=== PATIENT | female | born 1960 | race Caucasian/White ===

== ENCOUNTER 2021-06-16 12:01 | Observation (INO) | payer OTHER, SELFPAY ==
--- OUTSIDE RECORDS SUMMARY | 2021-06-16 12:05 | XMS REPORT | Continuity of Care Document ---
:1960 Author Organization [facility] t Address [address] [place] [address] Care Team Providers Name Role Phone CO19, NURSE-CALEB Attending Clinician Unavailable DESMOND RIOS M.D. Attending Clinician Unavailable NADEEN RAMOS, PHD Attending Clinician Unavailable KALIE ZULUAGA M.D. 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 [place] with ) with Physici memory memory ans loss loss Spells of Spells of Problem Active Uni vers decreased decreased [place] attentiven attentiven [place] [facility] 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 ity of [place] [facility] Encounter Encounter Problem Active Uni vers for for [place]y of administra administra [place] tion of tion of Physici COVID-19 COVID-19 ans vaccine vaccine History of History of Problem Resolve Univers Moe Moe d ity of thyroiditi thyroiditi [place] s [facility] ans History of History of Problem Resolve Univers varicella varicella d ity of [place] [facility] History of History of Problem Resolve Univers Roger Roger d ity of syndrome syndrome [place] [facility] History of History of Problem Resolve Univers right foot right foot d it y of drop drop [place] [facility] History of History of Problem Resolve Univers syncope syncope d ity of [place] [facility] Allergies, Adverse Reactions, Alerts Allergy Allergy Status Severity Reaction(s) Onset Inactive Treating Comm ents Source Name Type Date Date Clinician YEIMI DA Active U [facility] Inhibito 10-13 [place] rs 00:[facility]: Orthope [facility] Sulfa DA Active RI [facility] (Sulfona 10-13 [place] mide 00:00: Orthope Antibiot 00 dic ics) Hospita l YEIMI DA Active U [facility] Inhibito 11-16 [place] rs 00:00: Orthope 00 dic [facility]osp[facility] Sulfa DA Active U [facility] (Sulfona 11-16 [place] mide 00:00: Orthope Antibiot 00 dic ics) Hospita l YEIMI DA Active U [facility] INHIBITO 11-15 [place] RS 00:00: Orthope 00 dic Hospita l No Known DA Active U [facility] Contrast 11-15 [place] Allergie 00:00: Orthope s 00 dic Hospita l No Known DA Active U [facility] Food 11-15 [place] Allergie 00:00: Orthope s 00 dic Hospita l No Known DA Active U [facility] Other 11-15 [place] Allergie 00:00: Orthope s 00 dic Hospita l SULFA DA Active U 0 [facility] DRUGS 11-15 [place] 00:00: Orthope 00 dic Hospita l YEIMI Allergy Active Univers Inhibito to drug ity of rs (finding [place] ) Physici ans sulfa Allergy Active Univers to drug ity of (finding [place] Physici ans Family History Family Member Diagnosis Comments Start Date Stop Date Source Grandmother Family history of Univer sity of Alzheimer's disease [place] [facility] Grandmother Family history of Univer sity of Adult celiac disease [place] [facility] Grandfather Family history of Univer sity of Aneurysm [place] [facility] Grandfather Family history of Univer sity of atrial fibrillation [place] [facility] great grandmother Family history of University of atrial fibrillation [place] [facility] Mother Family history of Univers ity of atrial fibrillation [place] [facility] Mother Family history of Univers ity of hypothyroidism [place] [facility] Mother Family history of Univers ity of Degenerative disease [place] [facility] of nervous system, unspecified Mother Family history of Univers ity of Alive and well [place] [facility] Mother Family history of Univers ity of valvular heart [place] [facility] disease Father Family history of Univers ity of hypertension [place] [facility] Father Family history of Univers ity of High cholesterol [place] [facility] Father Family history of Univers ity of myocardial infarction [place] Father Family history of Univers ity of cardiomyopathy [place] [facility] Father Family history of Univers ity of [place] [facility] Medications Ordered Filled Start Stop Current Ordering Indication Dosage Frequency Signature Comments Components Source Medication Medication Date Date Medication? Clinician (SIG) Name Name L-Thyroxine L-Thyroxine Yes 1 QD TAKE 1 Univers Sodium 125 Sodium 125 TABLET i ty of MCG TABS MCG TABS DAILY. [place] [facility] valACYclovi valACYclovi Yes U nivers r HCl - 1 r HCl - 1 ity o f GM Oral GM Oral [place] Tablet Tablet Physici ans CombiPatch CombiPatch Yes Uni vers PTTW PTTW ity of [place] [facility] Ambien 10 Ambien 10 Yes Unive rs MG Oral MG Oral ity of Tablet Tablet [place] [facility] Wellbutrin Wellbutrin Yes Uni vers XL 300 MG XL 300 MG ity o f Oral Tablet Oral Tablet [place] Extended Extended Physici Release 24 Release 24 ans Hour Hour Lysine 1000 Lysine 1000 Yes U nivers MG TABS MG TABS ity of [place] [facility] B Complex B Complex Yes Unive rs CAPS CAPS ity of [place] [facility] Fish Oil Fish Oil Yes Univers CAPS CAPS ity of [place] [facility] Flaxseed Flaxseed Yes Univers Oil OIL Oil OIL ity of [place] [facility] ans Metamucil Metamucil Yes Unive rs PACK PACK ity of [place] [facility] Multiple Multiple Yes Univers Vitamins/Ir Vitamins/Ir i ty of on Oral on Oral [place] Tablet Tablet Physici ans Immunizations Ordered Immunization Filled Immunization Date Status Commen ts Source Name Name Pfizer-BioNTech 2020-10-04 Completed Universit y of COVID-19 Vacc 30 20:34:00 [place] [facility] MCG/0.3ML Intramuscular Suspension Pfizer-BioNTech 2020-09-14 Completed Universit y of COVID-19 Vacc 30 08:06:00 [place] [facility] MCG/0.3ML Intramuscular Suspension Vital Signs Vital Name Observation Time Observation Value Comments Source BP Systolic 2019-06-01 135 mm[Hg] Location: [facility] 14:48:00 Position: [place] [facility] s Sitting BP Diastolic 2019-06-01 88 mm[Hg] Location: [facility] 14:48:00 Position: [place] Physician s Sitting Height 2019-06-01 66 [in_us] [facility] 14:48:00 [place] [facility] Weight 2019-06-01 140 [lb_av] [facility] 14:48:00 [place] [facility] Body Mass Index 2019-06-01 22.6 kg/m2 University o f Calculated 14:48:00 [place] [facility] Temperature 2019-06-01 97.8 [degF] [facility] 14:48:00 [place] [facility] Heart Rate 2019-06-01 66 /min [facility] 14:48:00 [place] [facility] BP Systolic 2019-02-09 156 mm[Hg] [facility] 09:10:00 [place] [facility] BP Diastolic 2019-02-09 95 mm[Hg] [facility] 09:10:00 [place] [facility] Height 2019-02-09 66 [in_us] [facility] 09:10:00 [place] [facility] s Weight 2019-02-09 139 [lb_av] [facility] 09:10:00 [place] [facility] s Body Mass Index 2019-02-09 22.44 kg/m2 University o f Calculated 09:10:00 [place] [facility] Heart Rate 2019-02-09 69 /min [facility] 09:10:00 [place] [facility] Respiration Rate 2019-02-09 16 /min [facility] 09:10:00 [place] [facility] O2 SAT 2019-02-09 98 % [facility] 09:10:00 [place] [facility] Procedures Procedure Date / Time Performing Clinician Source Performed [Q] AUTOIMMUNE EPILEPSY 2019-06-01 00:00:00 [facility] EVALUATION Physicians [H] Paraneoplastic 2019-03-21 00:00:00 [facility] Autoantibody Evaluation Physicia ns [Q] Rikki Encephalitis 2019-03-21 00:00:00 [facility] Paraneoplastic Evaluation Physic ians with Recombx MRI Brain wo contrast 2019-02-13 00:00:00 [facility] [id number] Physicians EEG Awake and Asleep 2019-02-09 00:00:00 [facility] Physicians [UTP] EMG 2019-02-09 00:00:00 [facility] [place] [facility] [QLH] CBC (INCLUDES 2019-02-09 00:00:00 [facility] DIFF/PLT) Physicians [QL] CMP W/EGFR 2019-02-09 00:00:00 [facility] Physicians [QL] VITAMIN B12 2019-02-09 00:00:00 [facility] Physicians [QLH] RPR 2019-02-09 00:00:00 [place] [facility] [place] [facility] Physicians [QL] VITAMIN B1, WHOLE 2019-02-09 00:00:00 [facility] BLOOD Physicians [H] Celiac Pnl w/Rflx 2019-02-09 00:00:00 [facility] Endomy Ab Ttr Physicians [Q] Rikki Encephalitis 2019-02-09 00:00:00 [facility] Paraneoplastic Evaluation Physic ians with Recombx [H] Paraneoplastic 2019-02-09 00:00:00 [facility] Autoantibody Evaluation Physicia ns MRI Brain wo contrast 2019-02-09 00:00:00 [facility] [address] Physicians [UTP] Neuro Adult 23 Hr 2019-02-09 00:00:00 [facility] EEG Physicians History of [place] [facility] [place] [facility] tendon surgery Physicians History of Breast [facility] reduction Physicians History of Rhinoplasty [facility] Physicians History of Abdominoplasty [facility] Physicians History of Rectal [facility] polypectomy Physicians History of Ablation [facility] Physicians History of Lumbar [facility] discectomy Physicians Plan of Care Planned Activity Planned Date Details Comments Source Diagnostic Test 2019-02-27 [UTP] EMG [code = [facility] Pending 00:00:00 [UTP] EMG] Physicians Diagnostic Test 2019-02-09 [UTP] EMG [code = [facility] Pending 00:00:00 [UTP] EMG] Physicians Diagnostic Test 2019-02-09 [UTP] EMG [code = [facility] Pending 00:00:00 [UTP] EMG] Physicians Diagnostic Test 2019-02-09 [UTP] Neuro Adult [facility] Pending 00:00:00 23 Hr EEG [code = Physicians [UTP] Neuro Adult 23 Hr EEG] Diagnostic Test 2019-02-09 [UTP] EMG [code = [facility] Pending 00:00:00 [UTP] EMG] Physicians Encounters Start End Encounter Admission Attending Care Care Encounter Source Date/Time Date/Time Type Type Clinicians Facility Department ID 2020-10-04 2020-10-04 Appointmen CO19, UTP UTP [id number] Univers 11:30:00 11:30:00 t; CO19, NURSE-COOLE i ty of NURSE-COOL [facility] Physici ans 2020-09-14 2020-09-14 Appointconnie COChao, [facility] [id number] Univers 15:30:00 15:30:00 t; CO19, NURSE-COOLE i ty of NURSE-COOL Y [facility] Physici ans 2019-06-01 2019-06-01 Greg RIOS [facility] Neurology - [id number] Univers 14:30:00 14:30:00 t; DESMOND RIOS [facility] juan LOGAN M.D. [facility] Physic ans 2019-03-27 2019-03-27 Greg RAMOS [facility] [id number] Univers 08:30:00 08:30:00 t; brenda SENIOR, PHD [place] [facility] 2019-02-27 2019-02-27 [facility] [address] [facility] 14:21:00 14:21:00 2019-02-27 2019-02-27 Greg ZULUAGA [facility] Neurology [id number] Univers 13:00:00 13:00:00 t; KALIE ZULUAGA M.D. [place] i ty of [facility] 2019-02-09 2019-02-09 Greg RIOS [facility] Neurology [id number] Univers 09:00:00 09:00:00 t; DESMOND RIOS [facility] juan LOGAN M.D. [facility] Results Test Description Test Time Test Comments Results Result Comments Source [L] No Test Indicated 2019-03-28 10:17:00 Test Item Value Reference Range Interpretation Comme nts Dear See .The requisitio n we received for the above patient has no testindicated Doctor Comment on the request form for one or more of the specimenssubmitted. The (test [place] of Federal Regulations requires awritten and signed code = request be forw arded to the testing laboratoryfollowing the verbal order Dear of a laboratory test. Doctor) .Date: .ICD-9/10 Diagnosis Code(s): .Physician or Authorized Designee Signat ure: . .Your signature confi tremaine your order of the test(s) listed .Required test name(s): .Required test number(s): .Please provide requested infor mation and fax to to expedite testing. . [facility] Physicians[L] Paraneoplastic Profile [id number] 10:17:00 Test Item Value Reference Range Interpretation Comments Anti-Hu <1:10 Reference Range :Negative: < 1:10 Antibodies* titerPositive: => 1:10 titer (test code = Anti-Hu Antibodies*) Anti-Yo <1:10 Reference Range :Negative: < 1:10 Antibodies* titerPositive: => 1:10 titer (test code = Anti-Yo Antibodies*) Anti-Ri <1:10 Reference Range :Negative: < 1:10 Antibodies* titerPositive: => 1:10 (test code = titerAntibodies to Hu antigen also Anti-Ri called antineur onal Antibodies*) nuclearantibody (ANNA1) are present in felipe ents with paraneoplasticn eurologic syndrome such as Encepha lomyelitis and arefrequently a ssociated with small-cell lung cancer andneuroblastom a and rarely with non-small cell lung cancer,prostate cancer or seminoma.Antibo dies to Yo are associated with paraneoplasticd isorders (cerebellar deg eneration) occurring in pa tientswith small cell lung cance r (SCLC), gynecologic or breastcancer.An tibodies to Ri, also referred t o as anti-neuronal nuclearantibody type 2 (BRIJESH-2) is associated with paraneoplastics yndromes. The paraneoplastic syndromes associated with thepresence of Ri antibodies incl ude opsoclonus, ataxia,nystagmu s, dizziness and dysarthria.*Thi s test has been developed and p erformance parametershave been validated by [employer]. This test hasnot been nikki roved by the U.S. Food and Drug A dministration(FDA); however, US FDA approval is not required for cl inicaluse. It is not intended th at clinical diagnosis and p atientmanagement decisions be ma de using these results alone.T his test has been validated using serum samples. Themanufacturer has not determined the efficacy of this testwhen performed on CS F, plasma, joint or pleural fluidsp ecimens. The performance eric racteristics of this test wered etermined by [employer] . [facility] Physicians[QL] PARANEOPLASTIC AUTOANTIBODY EVAL. [id number] 10:17:00 Test Item Value Reference Interpretation Comments Range Interpretive See Comment No informative autoantibodies Comments (test were detected in code = theParaneoplast ic Evaluation. Interpretive However, a nega tive result Comments) doesnot exclude neurological autoimmunity wi th or withoutassociat ed neoplasia. Sensitivity and specificity ofantibody test ing are enhanced by facundo ting both serum andCSF. Anti-Neuronal Negative <1:240 Nucl. Ab, Type 1 (test code = Anti-Neuronal Nucl. Ab, Type 1) Reflex Added None. ----ADDITIONAL (test code = INFORMATION---- Reflex Added) -This test was developed and its performance characteristics determined by [facility] in a manner consistent with CLIArequirement s. This test has not been cl eared or approved bythe U.S. Food and Drug Administra tion. Anti-Neuronal Negative <1:240 -----ADDITIONAL Nucl. Ab, Type 2 INFORMATION (test code = -This test was developed and Anti-Neuronal its performanc e Nucl. Ab, Type characteristi csdetermined by 2) [facility] in a manner consistent with CLIArequirement s. This test has not been cl eared or approved bythe U.S. Food and Drug Administra tion. Anti-Neuronal Negative <1:240 -----ADDITIONAL Nucl. Ab, Type 3 INFORMATION (test code = -This test was developed and Anti-Neuronal its performanc e Nucl. Ab, Type characteristi csdetermined by 3) [facility] in a manner consistent with CLIArequirement s. This test has not been cl eared or approved bythe U.S. Food and Drug Administra tion. Anti-Glial Negative <1:240 ----ADDITIONAL Nuclear Ab Type INFORMATION- 1 (test code = -This test wa s developed and Anti-Glial its performance Nuclear Ab Type characterist icsdetermined by 1) [facility] in a manner consistent with CLIArequirement s. This test has not been cl eared or approved bythe U.S. Food and Drug Administra tion. Purkinje Cell Negative <1:240 -----ADDITIONAL Cytop.Ab,Type 1 INFORMATION- (test code = -This test was developed and Purkinje Cell its performanc e Cytop.Ab,Type 1) characteris ticsdetermined by [facility] in a manner consistent with CLIArequirement s. This test has not been cl eared or approved bythe U.S. Food and Drug Administra tion. Purkinje Cell Negative <1:240 -----ADDITIONAL Cytop.Ab, Type 2 INFORMATION (test code = -This test was developed and Purkinje Cell its performanc e Cytop.Ab, Type characteristi csdetermined by 2) [facility] in a manner consistent with CLIArequirement s. This test has not been cl eared or approved bythe U.S. Food and Drug Administra tion. Purkinje Cell Negative <1:240 -----ADDITIONAL Cytop.Ab Type Tr INFORMATION (test code = -This test was developed and Purkinje Cell its performanc e Cytop.Ab Type characteristic sdetermined by Tr) [facility] in a manner consistent with CLIArequirement s. This test has not been cl eared or approved bythe U.S. Food and Drug Administra tion. Amphiphysin Ab, Negative <1:240 -------ADDITIONAL S (test code = INFORMATION-- Amphiphysin Ab, -This test w as developed and S) its performance characteristics determined by [facility] in a manner consistent with CLIArequirement s. This test has not been cl eared or approved bythe U.S. Food and Drug Administra tion. CRMP-5 IgG, S Negative <1:240 -----ADDITIONAL (test code = INFORMATION---- CRMP-5 IgG, S) -This test wa s developed and its performance characteristics determined by [facility] in a manner consistent with CLIArequirement s. This test has not been cl eared or approved bythe U.S. Food and Drug Administra tion. Striational Negative <1:120 ----ADDITIONAL (Striat.Muscle), INFORMATION Ab (test code = -This test w as developed and Striational its performance (Striat.Muscle), characteris ticsdetermined by Ab) [facility] in a manner consistent with CLIArequirement s. This test has not been cl eared or approved bythe U.S. Food and Drug Administra tion. Calcium Channel, 0.00 nmol/L <=0.02 --------ADDITIONAL Ab P/Q-Type INFORMATION---- (test code = -This test was developed and Calcium Channel, its perform ance Ab P/Q-Type) characteristics determined by [facility] in a manner consistent with CLIArequirement s. This test has not been cl eared or approved bythe U.S. Food and Drug Administra tion. Calcium Channel, 0.00 nmol/L <=0.03 --------ADDITIONAL Ab N-Type (test INFORMATION- code = Calcium -This test wa s developed and Channel, Ab its performance N-Type) characteristics determined by [facility] in a manner consistent with CLIArequirement s. This test has not been cl eared or approved bythe U.S. Food and Drug Administra tion. ACh TNP Test not perfor med Recp.(Muscle)Franklin Roberson (test code = ACh Recp.(Muscle)Franklin Roberson) AChR Ganglionic 0.00 nmol/L <=0.02 -------ADDITIONAL Neuronal Ab, S INFORMATION-- (test code = -This test was developed and AChR Ganglionic its performa nce Neuronal Ab, S) characterist icsdetermined by [facility] in a manner consistent with CLIArequirement s. This test has not been cl eared or approved bythe U.S. Food and Drug Administra tion. Neuronal (V-G) 0.00 nmol/L <=0.02 ------ADDITIONAL K+Channel Ab, S INFORMATION- (test code = -This test was developed and Neuronal (V-G) its performan ce K+Channel Eduardo Roberson) characteris ticsdetermined by [facility] in a manner consistent with CLIArequirement s. This test has not been cl eared or approved bythe U.S. Food and Drug Administra tion. [facility] Brain wo contrast [id number] 09:54:00 Exam: MRI brain without contrast.INDICATION: Hereditary ataxia.COMPARISON: Outside MRI brain 05/19/2016.TECHNIQUE: Multiecho multiplanar MR sequences of the brain are obtained withoutgadolinium.Discussion: No restricted diffusion. Minimal FLAIR hyperintense signal in thedeep white matter compatible with microangiopathic changes. Volume loss in thecerebellum is redemonstrated, not progressed in the interim. No intracranialhemorrhage. No mass effect. No hydrocephalus.Paranasal sinuses and mastoid air cells are predominantly clear.IMPRESSION:Volume loss in the cerebellum is redemonstrated, not progressed in the interim.Minimal microangiopathic changes.--Read by: Ml Atkinsictated Date/time: 02/22/19 13:43Electronically Signed by: Ml Atkins MD 02/22/1913:51FINAL REPORTUnFillmore [facility]] CBC (INCLUDES DIFF/PLT)2019-02-09 12:20:00 Test Item Value Reference Range Interpretation Comments WBC (test code = 6690-2) 7.4 {x10E3/uL} 3.4-10.8 RBC (test code = 789-8) 4.13 {x10E6/uL} 3.77-5.28 Hemoglobin (test code = 14.9 g/dL 11.1-15.9 718-7) Hematocrit (test code = 43.5 % 34.0-46.6 4544-3) MCV; Above High Threshold 105 fL 79-97 (test code = 787-2) MCH; Above High Threshold 36.1 pg 26.6-33.0 (test code = 785-6) MCHC (test code = 786-4) 34.3 g/dL 31.5-35.7 RDW (test code = 788-0) 13.2 % 12.3-15.4 Platelets (test code = 777-3) 355 {x10E3/uL} 150-450 Neutrophils (test code = 64 % Not Estab. 770-8) Lymphs (test code = 736-9) 26 % Not Estab. Monocytes (test code = 10 % Not Estab. 5905-5) Eos (test code = 713-8) 0 % Not Estab. Basos (test code = 706-2) 0 % Not Estab. Immature Cells (test code = See Comment Immature Cells) Neutrophils (Absolute) (test 4.7 {x10E3/uL} 1.4-7.0 code = 751-8) Lymphs (Absolute) (test code 1.9 {x10E3/uL} 0.7-3.1 = 731-0) Monocytes(Absolute) (test 0.7 {x10E3/uL} 0.1-0.9 code = 742-7) Eos (Absolute) (test code = 0.0 {x10E3/uL} 0.0-0.4 711-2) Baso (Absolute) (test code = 0.0 {x10E3/uL} 0.0-0.2 704-7) Immature Granulocytes (test 0 % Not Estab. code = 93566-2) Immature Grans (Abs) (test 0.0 {x10E3/uL} 0.0-0.1 code = 22492-3) NRBC (test code = 54292-5) See Comment Hematology Comments: (test See Comment code = 86489-9) [facility] Physicians[QL] COMPREHENSIVE METABOLIC PANEL W/O eGFR 2019-02-09 12:20:00 Test Item Value Reference Range Interpretation Comments Glucose; Above High Threshold 105 mg/dL 65-99 (test code = 2345-7) BUN; Below Low Threshold (test 5 mg/dL 6-24 code = 3094-0) Creatinine (test code = 0.69 mg/dL 0.57-1.00 2160-0) eGFR If NonAfricn Am (test 98 mL/min/1.7 >59 code = 92935-3) eGFR If Africn Am (test code = 113 mL/min/1.7 >59 82843-1) BUN/Creatinine Ratio; Below 7 9-23 Low Threshold (test code = 3097-3) Sodium, Serum (test code = 137 mmol/L 294-266 4879-2) Potassium (test code = 2823-3) 4.7 mmol/L 3.5-5.2 Chloride (test code = 2075-0) 98 mmol/L 96-106 Carbon Dioxide, Total (test 23 mmol/L 20-29 code = 2028-9) Calcium, Serum (test code = 8.9 mg/dL 8.7-10.2 45457-9) Protein, Total (test code = 6.9 g/dL 6.0-8.5 2885-2) Albumin (test code = 1751-7) 4.7 g/dL 3.5-5.5 Globalulin, Total (test code = 2.2 g/dL 1.5-4.5 99282-3) A/G Ratio (test code = 1759-0) 2.1 1.2-2.2 Bilirubin, Total (test code = 0.4 mg/dL 0.0-1.2 1974-2) Alkaline Phosphatase (test 60 {IU/L} 39-117 code = 6768-6) AST (SGOT) (test code = 31 {IU/L} 0-40 1920-8) ALT (SGPT) (test code = 32 {IU/L} 0-32 1742-6) [facility]] [id number] 12:20:00 Test Item Value Reference Range Interpretation Comments RPR (test code = 41331-9) Non Reactive Non Reactive [facility]] VITAMIN [id number] 12:20:00 Test Item Value Reference Range Interpretation Comments Vitamin B12 (test code = 2132-9) 824 pg/mL 232-1245 [facility][] Celiac Disease [id number] 12:20:00 Test Item Value Reference Range Interpretation Comments Endomysial Antibody Negative Negative IgA (test code = 48129-9) t-Transglutaminase <2 0-3 Negative 0 - 3 (tTG) IgA (test code = 01713-9) Weak Positive 4 - 10 P ositive >10 . Tissue Transglu taminase (tTG) has been identified as the endomy sial antigen. Studi es have demonstr- ated that endo mysial IgA antibodies have over 99% specificity for gluten sensitive enter opathy. Immunoglobulin A, Qn, 253 mg/dL 87-352 Serum (test code = 2458-8) [facility][QL] VITAMIN B1, WHOLE [id number] 12:20:00 Test Item Value Reference Interpretation Comments Range Vit. B1, Whole 238.1 66.5-200.0 This test was developed and Blood; Above nmol/L its performance High Threshold characteristi csdetermined by (test code = [facility]. It has not been 26118-4) cleared or appr ovedby the Food and Drug Admini stration. [facility][L] Paraneoplastic Profile 12:20:00 Test Item Value Reference Range Interpretation Comments Anti-Hu <1:10 Reference Range :Negative: < 1:10 Antibodies* titerPositive: => 1:10 titer (test code = Anti-Hu Antibodies*) Anti-Yo <1:10 Reference Range :Negative: < 1:10 Antibodies* titerPositive: => 1:10 titer (test code = Anti-Yo Antibodies*) Anti-Ri <1:10 Reference Range :Negative: < 1:10 Antibodies* titerPositive: => 1:10 (test code = titerAntibodies to Hu antigen also Anti-Ri called antineur onal Antibodies*) nuclearantibody (ANNA1) are present in felipe ents with paraneoplasticn eurologic syndrome such as Encepha lomyelitis and arefrequently a ssociated with small-cell lung cancer andneuroblastom a and rarely with non-small cell lung cancer,prostate cancer or seminoma.Antibo dies to Yo are associated with paraneoplasticd isorders (cerebellar deg eneration) occurring in pa tientswith small cell lung cance r (SCLC), gynecologic or breastcancer.An tibodies to Ri, also referred t o as anti-neuronal nuclearantibody type 2 (BRIJESH-2) is associated with paraneoplastics yndromes. The paraneoplastic syndromes associated with thepresence of Ri antibodies incl ude opsoclonus, ataxia,nystagmu s, dizziness and dysarthria.*Thi s test has been developed and p erformance parametershave been validated by [employer]. This test hasnot been nikki roved by the U.[place]. Food and Drug A dministration(FDA); however, US FDA approval is not required for cl inicaluse. It is not intended th at clinical diagnosis and p atientmanagement decisions be ma de using these results alone.T his test has been validated using serum samples. Themanufacturer has not determined the efficacy of this testwhen performed on CS F, plasma, joint or pleural fluidsp ecimens. The performance eric racteristics of this test wered etermined by [employer] . [facility]
[2021-06-16] MEDS ORDERED: ONDANSETRON 4 MG (ODT) TAB ONE (12:48)
[2021-06-16] MEDS ORDERED: MORPHINE 4 MG/ML SYR ONE ×2 (13:27→14:11)
[2021-06-16] MEDS ORDERED: FAMOTIDINE 20 MG/2 ML VIAL IV ONE (13:28)
[2021-06-16] MEDS ORDERED: NA CHLORIDE 0.9% 1,000 ML ONE ×3 (13:28→21:34)
--- NOTE | 2021-06-16 13:41 | RAD REPORT ---
EXAM DESCRIPTION: US - Abdomen Exam Limited - 06/16/2021 1:34 pm CLINICAL HISTORY: ABD PAIN COMPARISON: No comparisons FINDINGS: The gallbladder demonstrates no gallstones. No pericholecystic fluid or gallbladder wall t hickening. The common bile duct is normal measuring 3 mm. The liver demonstrates no findings of intrahepatic biliary dilatation. IMPRESSION: Unremarkable examination.
--- NOTE | 2021-06-16 14:27 | ER ---
Nurse's Notes [facility] Name: Yue Trinidad Age: 61 yrs Sex: Female : 1960 Arrival Date: 06/16/2021 Time: 12:22 Bed 14 Private MD: Diagnosis: Abdominal pain, Generalized;Vomiting;Weakness;Hypokalemia;Left sided colitis without complications;Diverticulosis of large intestine without perforation or abscess without bleeding Presentation: 06/16 12:45 Chief complaint: Patient states: epigastric pain and nausea that began last night. Pt ss reports that the pain and nausea are constant. Coronavirus screen: Client denies travel out of the [place] in the last 14 days. Ebola Screen: Patient denies exposure to infectious person. Patient denies travel to an Ebola-affected area in the 21 days before illness onset. Initial Sepsis Screen: Does the patient meet any 2 criteria? No. Patient's initial sepsis screen is negative. Does the patient have a suspected source of infection? No. Patient's initial sepsis screen is negative. Risk Assessment: Do you want to hurt yourself or someone else? Patient reports no desire to harm self or others. Onset of symptoms was May 2021. 12:45 Method Of Arrival: Wheelchair ss 12:45 Acuity: NIKOLAI 2 ss Historical: - Allergies: 12:47 YEIMI INHIBITORS; ss 12:47 Sulfa (Sulfonamide Antibiotics); ss - Home Meds: 12:47 Wellbutrin Oral [Active]; Synthroid 112 mcg Oral tab 1 tab once daily [Active]; ss - PMHx: 12:47 Hypothyroidism; ss - PSHx: 12:47 achilles repair; tummy tuck; mammoplasty; ss - Immunization history:: Client reports receiving the 2nd dose of the Covid vaccine. - Social history:: Smoking status: Patient denies any tobacco usage or history of. - Family history:: not pertinent. Screenin:23 Abuse screen: Denies threats or abuse. Nutritional screening: No deficits noted. jd3 Tuberculosis screening: No symptoms or risk factors identified. Fall Risk Ambulatory Aid- None/Bed Rest/Nurse Assist (0 pts). Gait- Normal/Bed Rest/Wheelchair (0 pts) Mental Status- Oriented to own ability (0 pts). Total Burgos Fall Scale indicates No Risk (0-24 pts). Assessment: 13:58 Reassessment: phlebotomy called for help with blood draw, reported they will send jd3 someone. 14:03 General: Appears uncomfortable, Behavior is cooperative, appropriate for age, restless. al4 Pain: Complains of pain in abdomen Pain currently is 5 out of 10 on a pain scale. Quality of pain is described as pressure. Neuro: Level of Consciousness is awake, alert, obeys commands, Oriented to person, place, time, situation. Cardiovascular: Capillary refill < 3 seconds Rhythm is sinus rhythm. Respiratory: Airway is patent Respiratory effort is even, unlabored, Respiratory pattern is regular. GI: Abdomen is flat, non-distended, Pt is actively vomiting bile, Bowel sounds present X 4 quads. Abd is soft and non tender X 4 quads. Reports lower abdominal pain, upper abdominal pain, cramping, intolerance of fluids, intolerance of food, nausea, vomiting. : No signs and/or symptoms were reported regarding the genitourinary system. EENT: No signs and/or symptoms were reported regarding the EENT system. Derm: Skin is intact, Skin is diaphoretic, Skin is normal, Skin temperature is warm. Musculoskeletal: No signs and/or symptoms reported regarding the musculoskeletal system. 15:00 Reassessment: Patient appears in no apparent distress at this time. Patient and/or jd3 family updated on plan of care and expected duration. Pain level reassessed. Patient is alert, oriented x 3, equal unlabored respirations, skin warm/dry/pink. Patient states feeling better. 16:00 Reassessment: Patient appears in no apparent distress at this time. No changes from jd3 previously documented assessment. Patient and/or family updated on plan of care and expected duration. Pain level reassessed. Patient is alert, oriented x 3, equal unlabored respirations, skin warm/dry/pink. 17:00 Reassessment: Patient appears in no apparent distress at this time. No changes from jd3 previously documented assessment. Patient and/or family updated on plan of care and expected duration. Pain level reassessed. Patient is alert, oriented x 3, equal unlabored respirations, skin warm/dry/pink. 18:21 Reassessment: Patient appears in no apparent distress at this time. No changes from jd3 previously documented assessment. Patient and/or family updated on plan of care and expected duration. Pain level reassessed. Patient is alert, oriented x 3, equal unlabored respirations, skin warm/dry/pink. Vital Signs: 12:45 BP 156 / 107; Pulse 80; Resp 20; Temp 97.4(TE); Pulse Ox 100% on R/A; Weight 61.23 kg; ss Height 5 ft. 6 in. (167.64 cm); Pain 6/10; 14:08 BP 140 / 77; Pulse 68; Resp 18; Pulse Ox 99% ; al4 16:30 BP 138 / 79; Pulse 67; Resp 18 S; Pulse Ox 100% on R/A; jd3 17:30 BP 145 / 86; Pulse 74; Resp 18 S; Pulse Ox 99% on R/A; jd3 18:23 BP 136 / 81; Pulse 68; Resp 17 S; Pulse Ox 97% on R/A; jd3 12:45 Body Mass Index 21.79 (61.23 kg, 167.64 cm) ED Course: 12:22 Patient arrived in ED. kc5 12:47 Triage completed. ss 12:47 Arm band placed on right wrist. ss 13:17 Amandeep Ochoa MD is Attending Physician. eric 13:20 Clint Colón, AGLILEO is Primary Nurse. jd3 13:34 US Abdomen Limited In Process Unspecified. EDMS 13:59 Inserted saline lock: 22 gauge in right wrist, using aseptic technique. jd3 14:26 Melisa Sosa MD is Hospitalizing Provider. eric 14:43 XRAY Chest (1 view) In Process Unspecified. EDMS 16:05 CT Abd/Pelvis - IV Contrast Only In Process Unspecified. EDMS 18:23 Patient has correct armband on for positive identification. Placed in gown. Bed in low jd3 position. Call light in reach. Side rails up X 1. Adult w/ patient. forepart reducer on. Pulse ox on. NIBP on. 20:28 No provider procedures requiring assistance completed. Patient admitted, IV remains in tw5 place. 22:52 Primary Nurse role handed off by Clint Colón, RN tw5 22:52 Bhavya Dacosta is Primary Nurse. tw5 Administered Medications: 12:50 Drug: Ondansetron 4 mg Route: PO; 13:50 Follow up: Response: No adverse reaction jd3 14:00 Drug: NS 0.9% 1000 ml Route: IV; Rate: 1 bolus; Site: right wrist; al4 15:00 Follow up: Response: No adverse reaction; IV Status: Completed infusion; IV Intake: jd3 1000ml 14:00 Drug: Pepcid (famotidine) 20 mg Route: IVP; Site: right wrist; al4 15:00 Follow up: Response: No adverse reaction jd3 14:00 Drug: morphine 4 mg Route: IVP; Site: right wrist; al4 15:00 Follow up: Response: No adverse reaction jd3 14:19 Drug: morphine 4 mg Route: IVP; Site: right wrist; al4 19:21 Follow up: Response: No adverse reaction; RASS: Alert and Calm (0) jd3 14:55 Drug: NS 0.9% 1000 ml Route: IV; Rate: 1 bolus; Site: right wrist; al4 15:55 Follow up: Response: No adverse reaction; IV Status: Completed infusion; IV Intake: jd3 1000ml 15:06 Drug: ProTONIX (pantoprazole) 40 mg Route: IVP; Site: right wrist; al4 16:00 Follow up: Response: No adverse reaction jd3 16:21 Drug: Magnesium Sulfate 1 grams Route: IVPB; Infused Over: 1 hrs; Site: right wrist; al4 17:20 Follow up: Response: No adverse reaction; IV Status: Completed infusion jd3 17:04 Drug: Flagyl (metroNIDAZOLE) 500 mg Volume: 100 ml; Route: IVPB; Rate: 200 ml/hr; jd3 Infused Over: 30 mins; Site: right wrist; 18:00 Follow up: Response: No adverse reaction; IV Status: Completed infusion jd3 17:58 Drug: Rocephin (cefTRIAXone) 1 grams Route: IV; Rate: per protocol; Site: right wrist; al4 18:50 Follow up: Response: No adverse reaction; IV Status: Completed infusion jd3 Intake: 15:00 IV: 1000ml; Total: 1000ml. jd3 15:55 IV: 1000ml; Total: 2000ml. jd3 Outcome: 14:27 Decision to Hospitalize by Provider. eric 20:28 Admitted to ER Hold. Please see [facility] for further documentation. tw5 20:28 Condition: good 20:28 Instructed on the need for admit. 11/30 08:43 Patient left the ED. vg1 Signatures: Dispatcher [employer] EDAmandeep Sykes MD MD cha Smirch, Shelby, RN RN ss Clint Colón RN RN Edwina Sorto RN RN vg1 Bhavya Dacosta tw5 Jemma Cagle kc5 Bautista Pate4 Corrections: (The following items were deleted from the chart) 06/16 12:48 12:47 Allergies: No Known Allergies; ss ss 12:51 12:45 BP 156 / 10; Pulse 80bpm; Resp 20bpm; Pulse Ox 100% RA; Temp 97.4F Temporal; ss 61.23 kg; Height 5 ft. 6 in.; BMI: 21.7; Pain 6/10; ss 12:51 12:45 Acuity: NIKOLAI 3 ss ss 19:21 15:19 Response: No adverse reaction [facility]
--- NOTE | 2021-06-16 14:28 | EDPHYS ---
Physician Documentation [facility] Name: Yue Trinidad Age: 61 yrs Sex: Female : 1960 Arrival Date: 06/16/2021 Time: 12:22 Bed 14 Private MD: ED Physician Amandeep Ochoa HPI: 06/16 14:17 This 61 yrs old Female presents to ER via Wheelchair with complaints of eric Abdominal Pain. 14:17 The patient presents with abdominal pain in the epigastric area, in the upper abdomen. eric Onset: The symptoms/episode began/occurred last night. The patient presents to the emergency department with nausea, vomiting, diarrhea, abdominal pain, of the epigastric area, right upper quadrant and left upper quadrant. Onset: The symptoms/episode began/occurred last night. Possible causes: unknown. The symptoms are aggravated by nothing. The symptoms are alleviated by nothing. Associated signs and symptoms: Pertinent positives: abdominal pain, diarrhea, nausea, vomiting. The symptoms do not radiate. Associated signs and symptoms: Pertinent positives: nausea and vomiting, diarrhea. The symptoms are described as constant, crampy. Modifying factors: The symptoms are alleviated by nothing, the symptoms are aggravated by nothing. Historical: - Allergies: 12:47 YEIMI INHIBITORS; ss 12:47 Sulfa (Sulfonamide Antibiotics); ss - Home Meds: 12:47 Wellbutrin Oral [Active]; Synthroid 112 mcg Oral tab 1 tab once daily [Active]; ss - PMHx: 12:47 Hypothyroidism; ss - PSHx: 12:47 achilles repair; tummy tuck; mammoplasty; ss - Immunization history:: Client reports receiving the 2nd dose of the Covid vaccine. - Social history:: Smoking status: Patient denies any tobacco usage or history of. - Family history:: not pertinent. ROS: 14:17 Constitutional: Negative for fever, chills, and weight loss, Eyes: Negative for injury, eric pain, redness, and discharge, ENT: Negative for injury, pain, and discharge, Neck: Negative for injury, pain, and swelling, Cardiovascular: Negative for chest pain, palpitations, and edema, Respiratory: Negative for shortness of breath, cough, wheezing, and pleuritic chest pain, Back: Negative for injury and pain, : Negative for injury, bleeding, discharge, and swelling, MS/Extremity: Negative for injury and deformity, Neuro: Negative for headache, weakness, numbness, tingling, and seizure, Psych: Negative for depression, anxiety, suicide ideation, homicidal ideation, and hallucinations, Allergy/Immunology: Negative for hives, rash, and allergies, Endocrine: Negative for neck swelling, polydipsia, polyuria, polyphagia, and marked weight changes, Hematologic/Lymphatic: Negative for swollen nodes, abnormal bleeding, and unusual bruising. 14:17 Abdomen/GI: Positive for abdominal pain, nausea and vomiting, nausea, vomiting, diarrhea, abdominal cramps. 14:17 Skin: Positive for pallor. Exam: 14:17 Constitutional: This is a well developed, well nourished patient who is awake, alert, eric and in no acute distress. Head/Face: Normocephalic, atraumatic. Eyes: Pupils equal round and reactive to light, extra-ocular motions intact. Lids and lashes normal. Conjunctiva and sclera are non-icteric and not injected. Cornea within normal limits. Periorbital areas with no swelling, redness, or edema. ENT: Nares patent. No nasal discharge, no septal abnormalities noted. Tympanic membranes are normal and external auditory canals are clear. Oropharynx with no redness, swelling, or masses, exudates, or evidence of obstruction, uvula midline. Mucous membranes moist. Neck: Trachea midline, no thyromegaly or masses palpated, and no cervical lymphadenopathy. Supple, full range of motion without nuchal rigidity, or vertebral point tenderness. No Meningismus. Chest/axilla: Normal chest wall appearance and motion. Nontender with no deformity. No lesions are appreciated. Cardiovascular: Regular rate and rhythm with a normal S1 and S2. No gallops, murmurs, or rubs. Normal PMI, no JVD. No pulse deficits. Respiratory: Lungs have equal breath sounds bilaterally, clear to auscultation and percussion. No rales, rhonchi or wheezes noted. No increased work of breathing, no retractions or nasal flaring. Abdomen/GI: Soft, non-tender, with normal bowel sounds. No distension or tympany. No guarding or rebound. No evidence of tenderness throughout. Back: No spinal tenderness. No costovertebral tenderness. Full range of motion. Female : Normal external genitalia. MS/ Extremity: Pulses equal, no cyanosis. Neurovascular intact. Full, normal range of motion. Neuro: Awake and alert, GCS 15, oriented to person, place, time, and situation. Cranial nerves II-XII grossly intact. Motor strength 5/5 in all extremities. Sensory grossly intact. Cerebellar exam normal. Normal gait. Psych: Awake, alert, with orientation to person, place and time. Behavior, mood, and affect are within normal limits. 14:17 Skin: Appearance: Color: pale, Temperature: normal temperature, Moisture: diaphoretic, petechiae, not noted, ecchymosis, not noted, diaphoresis is noted. 14:27 ECG was reviewed by the Attending Physician. eric Vital Signs: 12:45 BP 156 / 107; Pulse 80; Resp 20; Temp 97.4(TE); Pulse Ox 100% on R/A; Weight 61.23 kg; ss Height 5 ft. 6 in. (167.64 cm); Pain 6/10; 14:08 BP 140 / 77; Pulse 68; Resp 18; Pulse Ox 99% ; al4 16:30 BP 138 / 79; Pulse 67; Resp 18 S; Pulse Ox 100% on R/A; jd3 17:30 BP 145 / 86; Pulse 74; Resp 18 S; Pulse Ox 99% on R/A; jd3 18:23 BP 136 / 81; Pulse 68; Resp 17 S; Pulse Ox 97% on R/A; jd3 12:45 Body Mass Index 21.79 (61.23 kg, 167.64 cm) MDM: 13:17 Patient medically screened. [facility] 14:22 Differential diagnosis: viral gastroenteritis, gastroenteritis, appendicitis, bowel eric obstruction, coronary artery disease, cholecystitis, Cholelithiasis, diverticulitis, gastritis, gastroesophageal reflux disease, GI Bleed, Irritable bowel syndrome, sympomatic leaking abdominal aortic aneurysm, Mesenteric ischemia or infarction, myocardia ischemia or infarction, non-specific abd pain, pancreatitis, Peptic Ulcer Disease. Data reviewed: vital signs, nurses notes, lab test result(s), EKG, radiologic studies, CT scan, plain films, ultrasound. Data interpreted: account development manager: rate is 68 beats/min, rhythm is regular, Pulse oximetry: on room air is 99 %. Test interpretation: by ED physician or midlevel provider: ECG, plain radiologic studies. Counseling: I had a detailed discussion with the patient and/or guardian regarding: the historical points, exam findings, and any diagnostic results supporting the discharge/admit diagnosis, the presence of at least one elevated blood pressure reading (>120/80) during this emergency department visit, lab results, radiology results, the need for further work-up and treatment in the hospital. 06/16 13:20 Order name: Basic Metabolic Panel; Complete Time: 15:59 [facility] 06/16 13:20 Order name: CBC with Diff [facility] 06/16 13:20 Order name: LFT's; Complete Time: 15:59 [facility] 06/16 13:20 Order name: Magnesium; Complete Time: 15:59 [facility] 06/16 13:20 Order name: NT PRO-BNP; Complete Time: 15:59 [facility] 06/16 13:20 Order name: PT-INR; Complete Time: 15:23 [facility] 06/16 13:20 Order name: Troponin (emerg Dept Use Only); Complete Time: 15:59 [facility] 06/16 13:20 Order name: XRAY Chest (1 view); Complete Time: 15:23 [facility] 06/16 13:20 Order name: SARS-COV-2 RT PCR (Document "Date of Onset" if Symptomatic) [facility] 06/16 16:07 Order name: CBC with Automated Diff [facility] 06/16 16:07 Order name: CBC with Automated Diff [facility] 06/16 16:07 Order name: Comprehensive Metabolic Panel [facility] 06/16 16:07 Order name: Comprehensive Metabolic Panel [facility] 06/16 21:10 Order name: Manual Differential [facility] 06/16 13:20 Order name: EKG; Complete Time: 13:21 [facility] 06/16 13:20 Order name: Cardiac monitoring; Complete Time: 13:51 [facility] 06/16 13:20 Order name: EKG - Nurse/Tech; Complete Time: 13:51 [facility] 06/16 13:20 Order name: US Abdomen Limited; Complete Time: 14:17 [facility] 06/16 14:17 Order name: CT Abd/Pelvis - IV Contrast Only; Complete Time: 16:59 [facility] 06/16 16:07 Order name: 60g Consistent Carbohydrate (ADA 1800/2000) [facility] 06/16 13:20 Order name: IV Saline Lock; Complete Time: 13:52 [facility] 06/16 13:20 Order name: Labs collected and sent; Complete Time: 14:36 [facility] 06/16 13:20 Order name: O2 Per Protocol; Complete Time: [facility] 06/16 13:20 Order name: O2 Sat Monitoring; Complete Time: [facility] EC: Rate is 57 beats/min. Rhythm is regular. QRS [place] is Normal. MS interval is normal. QRS eric interval is normal. QT interval is normal. No Q waves. T waves are Normal. No ST changes noted. Clinical impression: Sinus bradycardia and No evidence of ischemia. Interpreted by me. Reviewed by me. Administered Medications: 12:50 Drug: Ondansetron 4 mg Route: PO; ss 13:50 Follow up: Response: No adverse reaction jd3 14:00 Drug: NS 0.9% 1000 ml Route: IV; Rate: 1 bolus; Site: right wrist; al4 15:00 Follow up: Response: No adverse reaction; IV Status: Completed infusion; IV Intake: jd3 1000ml 14:00 Drug: Pepcid (famotidine) 20 mg Route: IVP; Site: right wrist; al4 15:00 Follow up: Response: No adverse reaction jd3 14:00 Drug: morphine 4 mg Route: IVP; Site: right wrist; al4 15:00 Follow up: Response: No adverse reaction jd3 14:19 Drug: morphine 4 mg Route: IVP; Site: right wrist; al4 19:21 Follow up: Response: No adverse reaction; RASS: Alert and Calm (0) jd3 14:55 Drug: NS 0.9% 1000 ml Route: IV; Rate: 1 bolus; Site: right wrist; al4 15:55 Follow up: Response: No adverse reaction; IV Status: Completed infusion; IV Intake: jd3 1000ml 15:06 Drug: ProTONIX (pantoprazole) 40 mg Route: IVP; Site: right wrist; al4 16:00 Follow up: Response: No adverse reaction jd3 16:21 Drug: Magnesium Sulfate 1 grams Route: IVPB; Infused Over: 1 hrs; Site: right wrist; al4 17:20 Follow up: Response: No adverse reaction; IV Status: Completed infusion jd3 17:04 Drug: Flagyl (metroNIDAZOLE) 500 mg Volume: 100 ml; Route: IVPB; Rate: 200 ml/hr; jd3 Infused Over: 30 mins; Site: right wrist; 18:00 Follow up: Response: No adverse reaction; IV Status: Completed infusion jd3 17:58 Drug: Rocephin (cefTRIAXone) 1 grams Route: IV; Rate: per protocol; Site: right wrist; al4 18:50 Follow up: Response: No adverse reaction; IV Status: Completed infusion jd3 Disposition Summary: 06/16/21 14:27 Hospitalization Ordered Hospitalization Status: Observation eric Provider: Melisa Sosa cha Condition: Fair eric Problem: new eric Symptoms: have improved eric Bed/Room Type: Standard eric Location: Telemetry/MedSurg (Inpatient)(06/17/21 08:17) Room Assignment: 407(06/17/21 08:17) Diagnosis - Abdominal pain, Generalized eric - Vomiting eric - Weakness eric - Hypokalemia eric - Left sided colitis without complications eric - Diverticulosis of large intestine without perforation or abscess without bleeding eric Forms: - Medication Reconciliation Form eric - SBAR form eric Signatures: Dispatcher [employer] EDSandy Morrissey Corey, MD MD cha Smirch, Shelby RN RN Clint Ventura RN RN jd3 Ledbetter, Alexis al4 Corrections: (The following items were deleted from the chart) 12:48 12:47 Allergies: No Known Allergies; ss 17:02 14:27 Telemetry/MedSurg (observation) eric bd 17:02 14:27 eric bd 06/17 08:17 06/16 17:02 [facility] ER HOLD bd ss 06/17 08:17 06/16 17:02 ERHOLD- bd ss
[2021-06-16 14:45] LABS: Basophils % 0.2 % (0-1.3); Hematocrit 38.7 % (36.0-45.0); Lymphocytes % 9.3 % (15.3-44.8); MPV 7.3 fL (7.6-11.3); RBC Red Blood Cell Count 3.84 M/uL (3.86-4.86)
[2021-06-16 14:49] LABS: Protime INR 1.2
--- NOTE | 2021-06-16 14:57 | RAD REPORT ---
EXAM DESCRIPTION: RAD - Chest Single View - 06/16/2021 2:43 pm CLINICAL HISTORY: ABDOMINAL DISTENTION Chest pain. COMPARISON: No comparisons FINDINGS: Portable technique limits examination quality. The lungs are grossly clear. The heart is normal in size. No displaced fractures. IMPRESSION: No acute intrathoracic process suspected.
[2021-06-16] MEDS ORDERED: PANTOPRAZOLE 40 MG INJ ONE (14:59)
[2021-06-16 15:33] LABS: ALT/SGPT 28 U/L (12-78); AST/SGOT 21 U/L (15-37); Albumin 3.8 g/dL (3.4-5.0); Alkaline Phosphatase 60 U/L (45-117); BUN Blood Urea Nitrogen 10 mg/dL (7-18); Bicarbonate 22 mmol/L (21-32); Bilirubin Direct 0.1 mg/dL (0-0.2); Bilirubin Total 0.8 mg/dL (0.2-1.0); Glucose Level 119 mg/dL (74-106); Magnesium 1.7 mg/dL (1.8-2.4); NT PRO-BNP 360 pg/mL (<125); Potassium 3.6 mmol/L (3.5-5.1); Sodium Level 137 mmol/L (136-145); Troponin (Emerg Dept Use Only) < 0.02 ng/mL (0.0-0.045)
[2021-06-16] MEDS ORDERED: MAGNESIUM SULFATE 1 gm IVPB 1 GM/100 ML BAG IV ONE (16:01)
[2021-06-16] MEDS ORDERED: ONDANSETRON 4 MG/2 ML VIAL IV PRN (16:04)
[2021-06-16] MEDS ORDERED: ACETAMINOPHEN 500 MG TAB PO PRN (16:04)
[2021-06-16] MEDS ORDERED: MORPHINE 2 MG/ML SYR IV PRN (16:04)
--- NOTE | 2021-06-16 16:17 | RAD REPORT ---
EXAM DESCRIPTION: CTAbdomen Pelvis W Contrast - 06/16/2021 4:05 pm CLINICAL HISTORY: Abdominal pain. ABD PAIN COMPARISON: No comparisons TECHNIQUE: Biphasic CT imaging of the abdomen and pelvis was performed with 100 ml non-ionic IV cont rast. All CT scans are performed using dose optimization technique as appropriate and may include automated exposure control or mA/KV adjustment according to patient size. FINDINGS: The lung bases are clear. The liver, spleen, pancreas, adrenal glands and kidneys are within normal limits. No bowel obstruction, free air, free fluid or abscess. Mild thickening of the colonic wall is seen wi th numerous diverticula seen. The appendix is normal. No evidence of significant lymphadenopathy. Moderate lumbosacral degenerative changes. IMPRESSION: A nonspecific mild colitis pattern is possible.
[2021-06-16] MEDS ORDERED: NA CHLORIDE 0.9% 100 ML ONE (16:35)
[2021-06-16] MEDS ORDERED: METRONIDAZOLE 500mg IVPB 500 MG/100 ML BAG IV ONE (16:35)
[2021-06-16] MEDS ORDERED: CEFTRIAXONE 1000 MG/VIAL ONE (16:35)
[2021-06-16] MEDS: NA CHLORIDE 0.9% 1,000 ML IV SCH (17:00)
[2021-06-16] MEDS ORDERED: ZOLPIDEM TARTRATE 10 MG TABLET PO PRN (17:15)
--- NOTE | 2021-06-16 18:19 | P.HP ---
Certification for Inpatient Patient admitted to: Observation With expected LOS: <2 Midnights Patient will require the following post-hospital care: None Practitioner: I am a practitioner with admitting privileges, knowledge of patient current condition, hospital course, and medical plan of care. Services: Services provided to patient in accordance with Admission requirements found in Title 42 Section 412.3 of the Code of Federal Regulations Patient History Date of Service: 06/16/21 Reason for admission: Abdominal pain/nausea and vomiting History of Present Illness: Patient is a 61-year-old female who came to the hospital with abdominal discomfort. Patient was having fevers the patient's pain was poorly controlled. Patient was having intractable nausea and vomiting. Patient came to the hospital for further evaluation. Imaging studies revealed colitis. Patient will be admitted and IV antibiotics will be started. - Past Medical/Surgical History Past Medical History: Patient denies medical history -: Hypothyroidism -: Achilles repair; tummy tuck; - Family History Father Family History: Reviewed- Non-Contributory - Social History Smoking Status: Never smoker Alcohol use: No CD- Drugs: No Review of Systems 10-point ROS is otherwise unremarkable Physical Examination - Vital Signs Temperature: 99 F Blood Pressure: 140/80 Pulse: 90 Respirations: 20 Pulse Ox (%): 96 - Physical Exam General: Alert, In no apparent distress, Oriented x3 HEENT: Atraumatic, PERRLA, Mucous membr. moist/pink, EOMI, Sclerae nonicteric Neck: Supple, 2+ carotid pulse no bruit, No LAD, Without JVD or thyroid abnormality Respiratory: Clear to auscultation bilaterally, Normal air movement Cardiovascular: Regular rate/rhythm, Normal S1 S2 Gastrointestinal: Soft and benign, Non-distended, No rebound, No guarding, Tenderness Musculoskeletal: No tenderness Integumentary: No rashes Neurological: Normal gait, Normal speech, Normal strength at 5/5 x4 extr, Normal tone, Sensation intact, Cranial nerves 3-12 intact, Normal affect Lymphatics: No axilla or inguinal lymphadenopathy - Studies Laboratory Data (last 24 hrs) 06/16/21 14:38: PT 13.8 H, INR 1.20 06/16/21 14:38: WBC 10.90, Hgb 13.3, Hct 38.7, Plt Count 260 06/16/21 14:38: Sodium 137, Potassium 3.6, BUN 10, Creatinine 0.80, Glucose 119 H, Magnesium 1.7 L, Total Bilirubin 0.8, AST 21, ALT 28, Alkaline Phosphatase 60 Assessment & Plan - Problems (Diagnosis) (1) Abdominal pain Current Visit: Yes Status: Acute (2) Colitis Current Visit: Yes Status: Acute (3) Nausea and vomiting Current Visit: Yes Status: Acute - Plan 1. Continue with IV hydration 2. Continue with IV antibiotics 3. Continue with pain control 4. Start clear liquid diet in a.m. 5. Outpatient GI consultation with outpatient colonoscopy 6. Monitor labs 7. GI and DVT prophylaxis Discharge Plan: Home Plan to discharge in: Greater than 2 days - Advance Directives Does patient have a Living Will: No Does patient have a Durable POA for Healthcare: No - Code Status/Comfort Care Code Status Assessed: Yes Code Status: Full Code Critical Care: No Time Spent Managing PTS Care (In Minutes): 45
[2021-06-16] MEDS ORDERED: Levofloxacin500mg IV 500 MG/100 ML BAG IV SCH (20:00)
[2021-06-16 20:42] VITALS: BMI 21.7
[2021-06-16 21:09] LABS: Blood Morphology Comment NOT SEEN (NOT SEEN); Platelet Estimate ADEQ
[2021-06-16] MEDS ORDERED: Levofloxacin500mg IV 500 MG/100 ML BAG IV ONE (21:34)
[2021-06-16] MEDS ORDERED: ZOLPIDEM TARTRATE 5 MG TABLET ONE (21:34)
[2021-06-17] MEDS ORDERED: METRONIDAZOLE 500mg IVPB 500 MG/100 ML BAG IV ONE ×2 (00:31→04:45)
[2021-06-17 03:57] LABS: Absolute Lymphocytes (CBC) 2.8 K/uL (0.7-4.9); Basophils % 0.3 % (0-1.3); Hematocrit 36.5 % (36.0-45.0); Lymphocytes % 21.6 % (15.3-44.8); MPV 7.7 fL (7.6-11.3); RBC Red Blood Cell Count 3.59 M/uL (3.86-4.86)
[2021-06-17 04:16] LABS: Albumin 3.1 g/dL (3.4-5.0); Bilirubin Total 0.6 mg/dL (0.2-1.0); Potassium 3.7 mmol/L (3.5-5.1); Protein, Total 6.2 g/dL (6.4-8.2)
[2021-06-17] MEDS: METRONIDAZOLE 500mg IVPB 500 MG/100 ML BAG IV SCH ×3 (05:12→12:00)
[2021-06-17] MEDS: NA CHLORIDE 0.9% 1,000 ML IV SCH (06:20)
--- NOTE | 2021-06-17 07:08 | EKG ---
Test Date: 2021-06-16 Test Time: 13:34:58 Cat Driver: MIKAL MEASUREMENT RESULTS: Intervals: Rate: 57 ME: 156 QRSD: 78 QT: 470 QTc: 457 [place]: P: 71 ME: 156 QRS: -48 T: 77 INTERPRETIVE STATEMENTS: Sinus bradycardia with sinus arrhythmia Left axis deviation Abnormal ECG No previous ECG available for comparison Electronically Signed On 06-17-21 07:04:45 [employer]OL by Judd Bermeo
[2021-06-17] MEDS ORDERED: NA CHLORIDE 0.9% 0 ML ONE (07:28)
[2021-06-17 07:50] VITALS: O2SAT 99
[2021-06-17] MEDS ORDERED: levoFLOXacin 500 MG TAB PO SCH (21:00)
[2021-06-17] MEDS ORDERED: metroNIDAZOLE 500 MG TABLET PO SCH (21:00)
[2021-06-23 01:12] VITALS: BP 140/80; TEMP 99
--- NOTE | 2021-06-23 01:14 | P.SSS ---
Patient History Date of Service: 06/17/21 Reason for admission: Abdominal pain/nausea and vomiting History of Present Illness: Patient is a 61-year-old female who came to the hospital with abdominal discomfort. Patient was having fevers the patient's pain was poorly controlled. Patient was having intractable nausea and vomiting. Patient came to the hospital for further evaluation. Imaging studies revealed colitis. Patient will be admitted and IV antibiotics will be started. Allergies YEIMI Inhibitors Allergy (Verified 06/16/21 20:43) Anaphylaxis Sulfa (Sulfonamide Antibiotics) Allergy (Verified 06/16/21 20:42) Hives/Rash Home Medications: Bupropion *Xl* [Wellbutrin XL*] 300 mg DAILY 06/16/21 Levothyroxine [Synthroid*] 0.125 mg pe DAILY 06/16/21 Valacyclovir [Valtrex*] 1,000 mg DAILY 06/16/21 - Past Medical/Surgical History -: Hypothyroidism -: Achilles repair; tummy tuck; - Family History Family History: Reviewed- Non-Contributory - Social History Smoking Status: Never smoker Alcohol use: No CD- Drugs: No Review of Systems 10-point ROS is otherwise unremarkable Physical Examination - Vital Signs Temperature: 99 F Blood Pressure: 140/80 Pulse: 90 Respirations: 20 Pulse Ox (%): 96 - Physical Exam General: Alert, In no apparent distress, Oriented x3 HEENT: Atraumatic, PERRLA, Mucous membr. moist/pink, EOMI, Sclerae nonicteric Neck: Supple, 2+ carotid pulse no bruit, No LAD, Without JVD or thyroid abnormality Respiratory: Clear to auscultation bilaterally, Normal air movement Cardiovascular: Regular rate/rhythm, Normal S1 S2, No murmurs Gastrointestinal: Normal bowel sounds, Soft and benign, Non-distended, No rebound, No guarding, Tenderness Musculoskeletal: No clubbing, No swelling, No tenderness Integumentary: No rashes Neurological: Normal gait, Normal speech, Normal strength at 5/5 x4 extr, Normal tone, Sensation intact, Cranial nerves 3-12 intact, Normal affect Lymphatics: No axilla or inguinal lymphadenopathy - Diagnosis (Problem(s)) (1) Abdominal pain Status: Acute (2) Colitis Status: Acute (3) Nausea and vomiting Status: Acute Treatment Summary: Patient has done well during hospital stay. Patient's clinical symptoms have resolved. At this time, patient is stable for discharge home. Patient will need outpatient follow with Gastroenterology. - Disposition Disposition: ROUTINE DISCHARGE Condition: GOOD Diet: AHA Activity: Fall precautions Critical Care: No Time Spent Managing Pts Care (In Minutes): 45
== END 2021-06-17 13:00 | disposition home or self-care (01) ==
LOC: ER 12:01 → ERHOLD 16:42 → 4TH 06-17 09:17
PROVIDERS: ADMIT Hospitalist; ATTEND Hospitalist
DX: K52.9 Noninfective gastroenteritis and colitis, unspecified (principal); E03.9 Hypothyroidism, unspecified; Z88.2 Allergy status to sulfonamides; Z20.822 Contact with and (suspected) exposure to COVID-19
CPT/HCPCS: 36415; 71045; 74177; 76705; 80048; 80053; 80076; 83735; 83880; 84484; 85025; 85610; 93005; 96361; 96365; 96367; 96375; 99285; C9113; G0378; G0379; J3475; J7030; Q9967; U0003

== ENCOUNTER 2021-07-18 08:55 | Emergency (ER) | payer SELFPAY ==
--- OUTSIDE RECORDS SUMMARY | 2021-07-18 08:58 | XMS REPORT | Continuity of Care Document ---
:1960 Author Organization [facility] t Address [facility] [place] [address] Care Team Providers Name Role Phone CO19, [...] 00 dic [facility] Sulfa DA Active [place] [facility] (Sulfona 10-13 [place] mide 00:00: Orthope [...] Hospita l No Known DA Active U 2003-0 [facility] Contrast 11-15 [place] Allergie 00:00: Orthope s 00 dic Hospita l No Known DA Active U 0 [facility] Food 11-15 [place] Allergie 00:00: Orthope s 00 dic Hospita l No Known DA Active U 0 [facility] Other 11-15 [place] Allergie 00:00: Orthope s 00 dic Hospita l SULFA DA Active U 0 [facility] DRUGS 11-15 [place] 00:00: Orthope 00 dic Hospita l YEIMI Allergy Active Univers Inhibito to drug ity of rs (finding [place] ) Physici ans sulfa Allergy Active [facility] to drug ity of (finding [place] ) Physici ans Family History Family Member [...] Yes Uni vers PTTW PTTW ity of [place] Physici ans Ambien 10 Ambien 10 Yes Unive rs MG Oral MG Oral ity of Tablet Tablet [place] Physici ans Wellbutrin Wellbutrin Yes Uni vers XL 300 MG XL 300 MG ity o f Oral Tablet Oral Tablet [place] Extended Extended Physici Release 24 Release 24 ans Hour Hour Lysine 1000 Lysine 1000 Yes U nivers MG TABS MG TABS ity of [place] Physici ans B Complex B Complex Yes Unive rs CAPS CAPS ity of [place] Physici ans Fish Oil Fish Oil Yes Univers CAPS CAPS ity of [place] Physici ans Flaxseed Flaxseed Yes Univers Oil OIL Oil OIL ity of [place] Physici ans Metamucil Metamucil Yes Unive rs PACK PACK ity of [place] Physici ans Multiple Multiple Yes Univers Vitamins/Ir [...] Source BP Systolic 2019-06-01 135 mm[Hg] Location: [facility] 14:48:00 Position: [place] Physician s Sitting BP Diastolic 2019-06-01 88 mm[Hg] Location: [facility] 14:48:00 Position: [place] Physician s Sitting Height 2019-06-01 66 [in_us] [facility] 14:48:00 [place] Physician s Weight 2019-06-01 140 [lb_av] [facility] 14:48:00 [place] Phys[facility] s Body Mass Index 2019-06-01 22.6 kg/m2 University o f Calculated 14:48:00 [place] Physician s Temperature 2019-06-01 97.8 [degF] [facility] 14:48:00 [place] [facility] Heart Rate 2019-06-01 66 /min [facility] 14:48:00 [place] Physician s BP Systolic 2019-02-09 156 mm[Hg] [facility] 09:10:00 [place] Phys[facility] s BP Diastolic 2019-02-09 95 mm[Hg] [facility] 09:10:00 [place] Physician s Height 2019-02-09 66 [in_us] [facility] 09:10:00 [place] Physician s Weight 2019-02-09 139 [lb_av] [facility] 09:10:00 [place] Phys[facility] s Body Mass Index 2019-02-09 22.44 kg/m2 University o f Calculated 09:10:00 [place] [facility] Heart Rate 2019-02-09 69 /min [facility] 09:10:00 [place] [facility] s Respiration Rate 2019-02-09 16 /min [facility] 09:10:00 [place] Physician s O2 SAT 2019-02-09 98 % [facility] 09:10:00 [place] [facility] Procedures Procedure Date / Time Performing Clinician Source Performed [Q] AUTOIMMUNE EPILEPSY 2019-06-01 00:00:00 [facility] EVALUATION Physicians [H] Paraneoplastic 2019-03-21 00:00:00 [facility] Autoantibody Evaluation Physicia ns [Q] Rikki Encephalitis 2019-03-21 00:00:00 [facility] Paraneoplastic Evaluation Physic ians with Recombx MRI Brain wo contrast 2019-02-13 00:00:00 [facility] [id number] Physicians EEG Awake and Asleep 2019-02-09 00:00:00 [facility] Physicians [UTP] EMG 2019-02-09 00:00:00 [facility] [place] [facility]icians [QL] CBC (INCLUDES 2019-02-09 00:00:00 [facility] DIFF/PLT) Physicians [QL] CMP W/EGFR 2019-02-09 00:00:00 [facility] Physicians [[facility]] VITAMIN B12 2019-02-09 00:00:00 [facility] Physicians [QLH] RPR 2019-02-09 00:00:00 [place] [facility] Physicians [QL] VITAMIN B1, WHOLE 2019-02-09 00:00:00 [facility] BLOOD Physicians [H] Celiac Pnl w/Rflx 2019-02-09 00:00:00 [facility] Endomy Ab Ttr Physicians [Q] Rikki Encephalitis 2019-02-09 00:00:00 [facility] Paraneoplastic Evaluation Physic ians with Recombx [H] Paraneoplastic 2019-02-09 00:00:00 [facility] Autoantibody Evaluation Physicia ns MRI Brain wo contrast 2019-02-09 00:00:00 [facility] [id number] Physicians [UTP] Neuro Adult 23 Hr 2019-02-09 00:00:00 [facility] EEG Physicians History of Achilles [facility] tendon surgery Physicians History of Breast [facility] reduction Physicians History of Rhinoplasty [facility] Physicians History of Abdominoplasty [facility] Physicians History of Rectal [facility] polypectomy Physicians History of Ablation [facility] Physicians History of Lumbar [facility] discectomy Physicians Plan of Care Planned Activity Planned Date Details Comments Source Diagnostic Test 2019-02-27 [UTP] EMG [code = [facility] Pending 00:00:00 [UTP] EMG] Physicians Diagnostic Test 2019-02-09 [UTP] EMG [code = [facility] Pending 00:00:00 [UTP] EMG] Physicians Diagnostic Test 2019-02-09 [UTP] EMG [code = [facility] Pending 00:00:00 [UTP] EMG] Physicians Diagnostic Test 2019-02-09 [UTP] Neuro Adult [facility] Pending 00:00:00 23 Hr EEG [code = Physicians [UTP] Neuro Adult 23 Hr EEG] Diagnostic Test 2019-02-09 [UTP] EMG [code = [facility] Pending 00:00:00 [UTP] EMG] Physicians Encounters Start End Encounter Admission Attending Care Care Encounter Source Date/Time Date/Time Type Type Clinicians Facility Department ID 2020-10-04 2020-10-04 Appointmen CO19, UTP UTP [id number] Univers 11:30:00 11:30:00 t; CO19, NURSE-COOLE i ty of NURSE-COOL [facility] EY Physici ans 2020-09-14 2020-09-14 Appointconnie COChao, [facility] [id number] Univers 15:30:00 15:30:00 t; CO19, NURSE-COOLE i ty of NURSECOOL [facility] Physici ans 2019-06-01 2019-06-01 Greg RIOS [facility] Neurology - [id number] Univers 14:30:00 14:30:00 t; DESMOND RIOS [facility] y juan LOGAN M.D. [facility] Physic ans 2019-03-27 2019-03-27 [facility] [id number] Univers 08:30:00 08:30:00 t; rbenda SENIOR, PHD [place] Gary SENIOR [facility] 2019-02-27 2019-02-27 [facility] [address] [facility] 14:21:00 14:21:00 2019-02-27 2019-02-27 Greg ZULUAGA [facility] Neurology - [id number] Univers 13:00:00 13:00:00 t; KALIE ZULUAGA M.D. [place] i ty of Carlos JADE [facility] 2019-02-09 2019-02-09 Greg RIOS [facility] Neurology - [id number] Univers 09:00:00 09:00:00 t; DESMOND RIOS [facility] juan LOGAN M.D. [facility] Results Test Description Test Time Test Comments Results Result Comments Source [L] No Test Indicated 2019-03-28 10:17:00 Test Item Value Reference Range Interpretation Comme nts Dear See .The requisitio n we received for the above patient has no testindicated Doctor Comment on the request form for one or more of the specimenssubmitted. The (test [place] of Federal Regulations requires awritten and signed code = request be forw arded to the testing laboratoryfollowing the verbal order Dear of a laboratory test. Doctor) .Date: .ICD-9/10 Diagnosis Code(s): .Physician or Authorized Designee Signat ure: . .Your signature confi tremaine your order of the test(s) listed .Required test name(s): .Required test number(s): .Please provide requested infor laura and fax to to expedite testing. . [facility] Physicians[L] Paraneoplastic Profile [id number] 10:17:00 Test Item Value Reference Range Interpretation [...] and p erformance parametershave been validated by [employer] This test hasnot been nikki roved [...] racteristics of this test wered etermined by [employer] [facility] Physicians[QL] PARANEOPLASTIC AUTOANTIBODY EVAL. [id number] 10:17:00 Test Item Value Reference Interpretation Comments [...] and its performance characteristics determined by [facility] in a manner consistent with CLIArequirement s. This test has not been cl eared or approved bythe U.S. Food and Drug Administra tion. Anti-Neuronal Negative <1:240 -----ADDITIONAL Nucl. Ab, Type 2 INFORMATION (test code = -This test was developed and Anti-Neuronal its performanc e Nucl. Ab, Type characteristi csdetermined by 2) [facility] in a manner consistent with CLIArequirement s. This test has not been cl eared or approved bythe U.S. Food and Drug Administra tion. Anti-Neuronal Negative <1:240 -----ADDITIONAL Nucl. Ab, Type 3 INFORMATION (test code = -This test was developed and Anti-Neuronal its performanc e Nucl. Ab, Type characteristi csdetermined by 3) [facility] in a manner consistent with CLIArequirement s. This test has not been cl eared or approved bythe U.S. Food and Drug Administra tion. Anti-Glial Negative <1:240 ----ADDITIONAL Nuclear Ab Type INFORMATION- 1 (test code = -This test wa s developed and Anti-Glial its performance Nuclear Ab Type characterist icsdetermined by 1) [facility] in a manner consistent with CLIArequirement s. This test has not been cl eared or approved bythe U.S. Food and Drug Administra tion. Purkinje Cell Negative <1:240 -----ADDITIONAL Cytop.Ab,Type 1 INFORMATION- (test code = -This test was developed and Purkinje Cell its performanc e Cytop.Ab,Type 1) characteris ticsdetermined by [facility] in a manner consistent with CLIArequirement s. This test has not been cl eared or approved bythe U.S. Food and Drug Administra tion. Purkinje Cell Negative <1:240 -----ADDITIONAL Cytop.Ab, Type 2 INFORMATION (test code = -This test was developed and Purkinje Cell its performanc e Cytop.Ab, Type characteristi csdetermined by 2) [facility] in a manner consistent with CLIArequirement s. This test has not been cl eared or approved bythe U.S. Food and Drug Administra tion. Purkinje Cell Negative <1:240 -----ADDITIONAL Cytop.Ab Type Tr INFORMATION (test code = -This test was developed and Purkinje Cell its performanc e Cytop.Ab Type characteristic sdetermined by Tr) [facility] in a manner consistent with CLIArequirement s. This test has not been cl eared or approved bythe U.S. Food and Drug Administra tion. Amphiphysin Ab, Negative <1:240 -------ADDITIONAL S (test code = INFORMATION-- Amphiphysin Ab, -This test w as developed and S) its performance characteristics determined by [facility] in a manner consistent with CLIArequirement s. This test has not been cl eared or approved bythe U.S. Food and Drug Administra tion. CRMP-5 IgG, S Negative <1:240 -----ADDITIONAL (test code = INFORMATION---- CRMP-5 IgG, S) -This test wa s developed and its performance characteristics determined by [facility] in a manner consistent with CLIArequirement s. This test has not been cl eared or approved bythe U.S. Food and Drug Administra tion. Striational Negative <1:120 ----ADDITIONAL (Striat.Muscle), INFORMATION Ab (test code = -This test w as developed and Striational its performance (Striat.Muscle), characteris ticsdetermined by Ab) [facility] in a manner consistent with CLIArequirement s. This test has not been cl eared or approved bythe U.S. Food and Drug Administra tion. Calcium Channel, 0.00 nmol/L <=0.02 --------ADDITIONAL Ab P/Q-Type INFORMATION---- (test code = -This test was developed and Calcium Channel, its perform ance Ab P/Q-Type) characteristics determined by [facility] in a manner consistent with CLIArequirement s. This test has not been cl eared or approved bythe U.S. Food and Drug Administra tion. Calcium Channel, 0.00 nmol/L <=0.03 --------ADDITIONAL Ab N-Type (test INFORMATION- code = Calcium -This test wa s developed and Channel, Ab its performance N-Type) characteristics determined by [facility] in a manner consistent with CLIArequirement s. This test has not been cl eared or approved bythe U.S. Food and Drug Administra tion. ACh TNP Test not perfor med Recp.(Muscle)Franklin gold Ab (test code = ACh Recp.(Muscle)Franklin gold Ab) AChR Ganglionic 0.00 nmol/L <=0.02 -------ADDITIONAL Neuronal Ab, S INFORMATION-- (test code = -This test was developed and AChR Ganglionic its performa nce Neuronal Ab, S) characterist icsdetermined by [facility] in a manner consistent with CLIArequirement s. This test has not been cl eared or approved bythe U.S. Food and Drug Administra tion. Neuronal (V-G) 0.00 nmol/L <=0.02 ------ADDITIONAL K+Channel Ab, S INFORMATION- (test code = -This test was developed and Neuronal (V-G) its performan ce K+Channel Ab, S) characteris ticsdetermined by [facility] in a manner consistent with CLIArequirement s. This test has not been cl eared or approved bythe U.S. Food and Drug Administra tion. [facility] Brain wo contrast [id number] 09:54:00 Exam: MRI brain without contrast.INDICATION: Hereditary [...] 13:43Electronically Signed by: Ml Atkins MD 02/22/1913:51FINAL [facility]Un[facility]] CBC (INCLUDES DIFF/PLT)2019-02-09 12:20:00 Test Item Value [...] (test 0 % Not Estab. code = 47255-6) Immature Grans (Abs) (test 0.0 {x10E3/uL} 0.0-0.1 code = 08721-8) NRBC (test code = 81874-1) See Comment Hematology Comments: (test See Comment code = 65677-2) [facility] Physicians[QL] COMPREHENSIVE METABOLIC PANEL W/O eGFR 2019-02-09 12:20:00 Test Item Value Reference Range Interpretation Comments Glucose; Above High Threshold 105 mg/dL 65-99 (test code = 2345-7) BUN; Below Low Threshold (test 5 mg/dL 6-24 code = 3094-0) Creatinine (test code = 0.69 mg/dL 0.57-1.00 2160-0) eGFR If NonAfricn Am (test 98 mL/min/1.7 >59 code = 06257-5) eGFR If Africn Am (test code = 113 mL/min/1.7 >59 81090-8) BUN/Creatinine Ratio; Below 7 9-23 Low Threshold (test code = 3097-3) Sodium, Serum (test code = 137 mmol/L 472-333 1469-2) Potassium (test code = 2823-3) 4.7 mmol/L 3.5-5.2 Chloride (test code = 2075-0) 98 mmol/L 96-106 Carbon Dioxide, Total (test 23 mmol/L 20-29 code = 2028-9) Calcium, Serum (test code = 8.9 mg/dL 8.7-10.2 70331-1) Protein, Total (test code = 6.9 g/dL 6.0-8.5 2885-2) Albumin (test code = 1751-7) 4.7 g/dL 3.5-5.5 Globalulin, Total (test code = 2.2 g/dL 1.5-4.5 35655-9) A/G Ratio (test code = 1759-0) 2.1 1.2-2.2 Bilirubin, Total (test code = 0.4 mg/dL 0.0-1.2 1974-2) Alkaline Phosphatase (test 60 {IU/L} 39-117 code = 6768-6) AST (SGOT) (test code = 31 {IU/L} 0-40 1920-8) ALT (SGPT) (test code = 32 {IU/L} 0-32 1742-6) [facility]] [id number] 12:20:00 Test Item Value Reference Range Interpretation Comments RPR (test code = 60264-7) Non Reactive Non Reactive [facility]] VITAMIN [id number] 12:20:00 Test Item Value Reference Range Interpretation Comments Vitamin B12 (test code = 2132-9) 824 pg/mL 232-1245 [facility][] Celiac Disease [id number] 12:20:00 Test Item Value Reference Range Interpretation Comments Endomysial Antibody Negative Negative IgA (test code = 94815-4) t-Transglutaminase <2 0-3 Negative 0 - 3 (tTG) IgA (test code = 34330-2) Weak Positive 4 - 10 P ositive >10 . Tissue Transglu taminase (tTG) has been identified as the endomy sial antigen. Studi es have demonstr- ated that endo mysial IgA antibodies have over 99% specificity for gluten sensitive enter opathy. Immunoglobulin A, Qn, 253 mg/dL 87-352 Serum (test code = 2458-8) [facility][QL] VITAMIN B1, WHOLE [id number] 12:20:00 Test Item Value Reference Interpretation Comments Range Vit. B1, Whole 238.1 66.5-200.0 This test was developed and Blood; Above nmol/L its performance High Threshold characteristi csdetermined by (test code = [facility]. It has not been 56629-0) cleared or appr ovedby the Food and Drug Admini stration. [facility][L] Paraneoplastic Profile 12:20:00 Test Item Value [...] and p erformance parametershave been validated by [employer] This test hasnot been nikki roved [...] racteristics of this test wered etermined by [employer] . [facility]
[2021-07-18] MEDS ORDERED: MORPHINE 4 MG/ML SYR ONE ×2 (09:45→12:06)
[2021-07-18] MEDS ORDERED: PROMETHAZINE INJ 25 MG/ML AMP ONE ×2 (09:45→12:06)
[2021-07-18 10:06] LABS: Hematocrit 41.9 % (36.0-45.0); Lymphocytes % 7.9 % (15.3-44.8); MPV 7.7 fL (7.6-11.3); RBC Red Blood Cell Count 4.15 M/uL (3.86-4.86)
[2021-07-18 10:24] LABS: Albumin 4.4 g/dL (3.4-5.0); Bilirubin Direct 0.2 mg/dL (0-0.2); Bilirubin Total 0.9 mg/dL (0.2-1.0); Potassium 3.9 mmol/L (3.5-5.1); Protein, Total 7.9 g/dL (6.4-8.2)
--- NOTE | 2021-07-18 10:54 | RAD REPORT ---
EXAM DESCRIPTION: CT - Abdomen Pelvis W Contrast - 07/18/2021 10:45 am CLINICAL HISTORY: Abdominal pain COMPARISON: May 2021 TECHNIQUE: Computed axial tomography of the abdomen pelvis was obtained. 100 cc Isovue-300 was admin istered intravenously. Oral contrast was not requested which limits evaluation of bowel. All CT scans are performed using dose optimization technique as appropriate and may include automated exposure control or mA/KV adjustment according to patient size. FINDINGS: The liver, spleen, pancreas, adrenal and kidneys appear unremarkable. There is no evidence of diverticulitis. Mild thickening of portions of the wall of the left and trans verse colon. Normal appendix. IMPRESSION: Mild colonic wall thickening probably a mild colitis
--- NOTE | 2021-07-18 11:21 | RAD REPORT ---
EXAM DESCRIPTION: US - Abdomen Exam Limited - 07/18/2021 10:06 am CLINICAL HISTORY: Abdominal pain. COMPARISON: May 2021 FINDINGS: The gallbladder wall is not thickened. A gallstone is not seen. The biliary tree is normal caliber. IMPRESSION: Unremarkable gallbladder ultrasound.
[2021-07-18 11:30] LABS: SARS-COV-2 RT PCR NEGATIVE (NEGATIVE)
[2021-07-18] MEDS ORDERED: PIPERACIL/TAZO 3.375 GM VIAL IV ONE (11:55)
[2021-07-18] MEDS ORDERED: NA CHLORIDE 0.9% 100 ML ONE (11:56)
[2021-07-18] MEDS ORDERED: NA CHLORIDE 0.9% 1,000 ML ONE (12:06)
[2021-07-18 12:39] LABS: Anisocytosis SLIGHT; Blood Morphology Comment NOTED (NOT SEEN); Macrocytosis SLIGHT; Platelet Estimate ADEQ; White Blood Cell Scan OK (OK)
[2021-07-18] MEDS ORDERED: ONDANSETRON 4 MG/2 ML VIAL ONE ×2 (14:33→16:23)
[2021-07-18] MEDS ORDERED: MEPERIDINE HCL 25 MG/ML SYR ONE (16:23)
--- NOTE | 2021-07-18 17:49 | EDPHYS ---
Physician Documentation [facility] Name: Yue Trinidad Age: 61 yrs Sex: Female : 1960 Arrival Date: 07/18/2021 Time: 08:58 Bed 10 Private MD: ED Physician Morgan Marie HPI: 07/18 09:30 This 61 yrs old Female presents to ER via Ambulatory with complaints of Abdominal Pain, rn Vomiting/Diarrhea. 09:30 The patient presents to the emergency department with nausea, vomiting, diarrhea, rn abdominal pain. Onset: The symptoms/episode began/occurred yesterday. Possible causes: unknown. The symptoms are aggravated by nothing. The symptoms are alleviated by nothing. 09:31 Associated signs and symptoms: Pertinent positives: abdominal pain, anorexia, diarrhea, rn nausea, vomiting, Pertinent negatives: fever, GI bleeding. Severity of symptoms: At their worst the symptoms were moderate in the emergency department the symptoms are unchanged. The patient has experienced a previous episode. The patient has been recently been admitted at [facility]. Patient reports 1 day of abdominal pain, epigastric, associated with nausea/vomiting/diarrhea. States similar to episode 4 weeks ago when admitted overnight. States felt better but now has returned since yesterday. Reports chills and cold sweats. Reports equal amount of vomiting and diarrhea. No blood in stool or emesis.. Historical: - Allergies: 09:14 YEIMI INHIBITORS; eo2 09:14 Sulfa (Sulfonamide Antibiotics); eo2 - Home Meds: 09:14 Synthroid 112 mcg Oral tab 1 tab once daily [Active]; Wellbutrin Oral [Active]; eo2 valacyclovir 1 gram oral tab 1 tab once daily [Active]; - PMHx: 09:14 Hypothyroidism; eo2 - PSHx: 09:14 achilles repair; mammoplasty; Tummy tuck; eo2 - Immunization history:: Adult Immunizations up to date, Client reports receiving the 2nd dose of the Covid vaccine. - Social history:: Smoking status: Patient denies any tobacco usage or history of. Patient uses. - Family history:: not pertinent. - Hospitalizations: : The patient was recently seen at [facility]. ROS: 09:31 Constitutional: Negative for fever, chills, and weight loss, Eyes: Negative for injury, rn pain, redness, and discharge, ENT: Negative for injury, pain, and discharge, Neck: Negative for injury, pain, and swelling, Cardiovascular: Negative for chest pain, palpitations, and edema, Respiratory: Negative for shortness of breath, cough, wheezing, and pleuritic chest pain, Abdomen/GI: Positive for abdominal pain/nausea/vomiting/diarrhea Back: Negative for injury and pain, : Negative for injury, bleeding, discharge, and swelling, MS/Extremity: Negative for injury and deformity, Skin: Negative for injury, rash, and discoloration, Neuro: Negative for headache, numbness, tingling, and seizure. Exam: 09:31 Constitutional: This is a well developed, well nourished patient who is awake, alert rn Head/Face: Normocephalic, atraumatic. Eyes: Periorbital areas with no swelling, redness, or edema. Cardiovascular: Regular rate and rhythm. No pulse deficits. Respiratory: No increased work of breathing, no retractions or nasal flaring. Abdomen/GI: Soft, mild epigastric tenderness, no peritoneal signs, no masses Skin: Warm, dry MS/ Extremity: Pulses equal, no cyanosis. Neuro: Awake and alert, GCS 15 Vital Signs: 09:10 BP 157 / 103; Pulse 63; Resp 17; Temp 98.3; Pulse Ox 100% ; Weight 61.23 kg; Height 5 eo2 ft. 6 in. (167.64 cm); Pain 8/10; 11:05 BP 103 / 71; Pulse 63; Resp 18; Pulse Ox 99% on R/A; valdes 12:37 BP 160 / 109; Pulse 70; Resp 22; Pulse Ox 100% on R/A; valdes 16:27 BP 162 / 96; Pulse 65; Resp 20; Pulse Ox 100% ; valdes 09:10 Body Mass Index 21.79 (61.23 kg, 167.64 cm) eo2 MDM: 09:22 Patient medically screened. rn 13:28 ED course: Patient still nauseous and was not able to tolerate p.o., remedicated, does rn not want to be admitted, will continue observation Here in ER.. 17:45 Differential diagnosis: Nonspecific abd pain, gastritis, cholecystitis, pancreatitis, rn diverticulitis, viral gastroenteritis, gastroenteritis, colitis. Data reviewed: vital signs, nurses notes, lab test result(s), radiologic studies, CT scan, and as a result, I will discharge patient. Counseling: I had a detailed discussion with the patient and/or guardian regarding: the historical points, exam findings, and any diagnostic results supporting the discharge/admit diagnosis, lab results, radiology results, the need for outpatient follow up, to return to the emergency department if symptoms worsen or persist or if there are any questions or concerns that arise at home. Response to treatment: the patient's symptoms have markedly improved after treatment, and as a result, I will discharge patient. Special discussion: Based on the patient's Hx, exam, and Dx evaluation, there is no indication for emergent surgery or inpatient Tx. It is understood by the patient/guardian that if the Sx's persist or worsen they need to return immediately for re-evaluation. I discussed with the patient/guardian in detail that at this point there is no indication for admission to the hospital. It is understood, however, that if the symptoms persist or worsen the patient needs to return immediately for re-evaluation. Based on the history and exam findings, there is no indication for further emergent testing or inpatient evaluation. I discussed with the patient/guardian the need to see the recovery auditor for further evaluation of the symptoms. ED course: Patient observed for prolonged period in ER to ensure she was okay. At the end of the visit I insisted multiple times that she be observed in the hospital but she insists on going home. 2 L fluid given as well as antibiotics. Multiple antiemetics given. Patient states that she will not be comfortable here and does not want to burden the staff. Per her wishes, I will discharge home with antibiotics/antiemetics/pain medication and return precautions given.. 07/18 09:28 Order name: Basic Metabolic Panel; Complete Time: 11:02 rn 07/18 09:28 Order name: CBC with Diff; Complete Time: 13:51 rn 07/18 09:28 Order name: Hepatic Function; Complete Time: 11:02 rn 07/18 09:28 Order name: Lipase; Complete Time: 11:02 rn 07/18 09:31 Order name: COVID-19/FLU A+B (Document "Date of Onset" if Symptomatic); Complete Time: rn 11:32 07/18 12:39 Order name: CBC Smear Scan; Complete Time: 13:51 EDMS 07/18 09:28 Order name: CT Abd/Pelvis - IV Contrast Only; Complete Time: 11:02 rn 07/18 09:28 Order name: US Abdomen Limited; Complete Time: 11:23 rn 07/18 09:28 Order name: IV Saline Lock; Complete Time: 09:58 rn 07/18 09:28 Order name: Labs collected and sent; Complete Time: 09:58 rn Administered Medications: 09:57 Drug: Phenergan (promethazine) 12.5 mg Route: IVP; Site: left antecubital; valdes 09:58 Follow up: Response: No adverse reaction valdes 09:57 Drug: morphine 4 mg Route: IVP; Site: left antecubital; valdes 09:58 Follow up: Response: No adverse reaction valdes 11:14 Follow up: Response: No adverse reaction valdes 12:23 Follow up: Response: No adverse reaction valdes 09:58 Drug: NS 0.9% 1000 ml Route: IV; Rate: 1000 ml; Site: left antecubital; valdes 10:29 Follow up: IV Status: Completed infusion valdes 11:15 Follow up: IV Status: Completed infusion valdes 11:57 Drug: Zosyn (piperacillin-tazobactam) 3.375 grams Route: IVPB; Infused Over: 60 mins; valdes Site: left antecubital; 12:23 Drug: Phenergan (promethazine) 12.5 mg Route: IVP; Site: left antecubital; valdes 12:24 Follow up: Response: No adverse reaction valdes 12:23 Drug: morphine 4 mg Route: IVP; Site: left antecubital; valdes 12:24 Follow up: Response: No adverse reaction valdes 12:24 Drug: NS 0.9% 1000 ml Route: IV; Rate: 1000 ml; Site: left antecubital; valdes 14:31 Drug: Zofran (Ondansetron) 4 mg Route: IVP; Site: left antecubital; valdes 14:31 Follow up: Response: No adverse reaction valdes 16:26 Drug: Zofran (Ondansetron) 4 mg Route: IVP; Site: right forearm; vadles 16:26 Follow up: Response: No adverse reaction valdes 16:26 Drug: Demerol (meperidine) 25 mg Route: IVP; Site: right forearm; valdes 16:26 Follow up: Response: No adverse reaction valdes Disposition Summary: 07/18/21 17:48 Discharge Ordered Location: Home rn Problem: new rn Symptoms: have improved rn Condition: Stable rn Diagnosis - Left sided colitis without complications rn - Vomiting rn Followup: rn - With: Private Physician - When: As needed - Reason: Recheck today's complaints, Re-evaluation by your physician Discharge Instructions: - Discharge Summary Sheet rn - Colitis rn Forms: - Medication Reconciliation Form rn - Thank You Letter rn - Antibiotic e learning designer - Prescription Opioid Use rn Prescriptions: - ondansetron 4 mg Oral tablet,disintegrating - place 1 tablet by TRANSLINGUAL route every 8 hours As needed; 20 tablet; rn Refills: 0, Product Selection Permitted - promethazine 25 mg Rectal suppository - insert 1 suppository by RECTAL route every 6 hours As needed; 10 suppository; rn Refills: 0, Product Selection Permitted - Cipro 500 mg Oral Tablet - take 1 tablet by ORAL route every 12 hours for 10 days; 20 tablet; Refills: 0, rn Product Selection Permitted - Flagyl 500 mg Oral Tablet - take 1 tablet by ORAL route every 8 hours for 10 days; 30 tablet; Refills: 0, rn Product Selection Permitted - Tylenol-Codeine #3 300 mg-30 mg Oral - take 15 tablet by ORAL route every 6-8 hours As needed; 15 tablet; Refills: 0, rn Product Selection Permitted Signatures: Dispatcher [employer] Morgan Alfonso MD MD rn Micki-Kristina Wright RN RN Deb Sumner RN RN eo2
--- NOTE | 2021-07-18 17:49 | ER ---
Nurse's Notes [facility] Name: Yue Trinidad Age: 61 yrs Sex: Female : 1960 Arrival Date: 07/18/2021 Time: 08:58 Bed 10 Private MD: Diagnosis: Left sided colitis without complications;Vomiting Presentation: 07/18 09:10 Chief complaint: Patient states: epigastric pain associated with N/V/D onset last night eo2 "all night long, it didn't stop". Pt actively vomiting in triage, reports similar 4 weeks ago, states she was admitted overnight. Pt denies CP, reports SOB from pain. Coronavirus screen: Vaccine status: Client denies travel out of the [place] in the last 14 days. Ebola Screen: Patient negative for fever greater than or equal to 101.5 degrees Fahrenheit, and additional compatible Ebola Virus Disease symptoms Patient denies exposure to infectious person. Patient denies travel to an Ebola-affected area in the 21 days before illness onset. No symptoms or risks identified at this time. Initial Sepsis Screen: Does the patient meet any 2 criteria? No. Patient's initial sepsis screen is negative. Does the patient have a suspected source of infection? No. Patient's initial sepsis screen is negative. Risk Assessment: Do you want to hurt yourself or someone else? Patient reports no desire to harm self or others. Note pt reports she took phenergan at 6am, ineffective. Onset of symptoms was July 17, 2021. 09:10 Method Of Arrival: Ambulatory eo2 09:10 Acuity: NIKOLAI 2 eo2 Triage Assessment: 09:14 General: Appears distressed, uncomfortable, actively vomiting. Behavior is anxious. GI: eo2 Reports upper abdominal pain, cramping, diarrhea, nausea, vomiting. Historical: - Allergies: 09:14 YEIMI INHIBITORS; eo2 09:14 Sulfa (Sulfonamide Antibiotics); eo2 - Home Meds: 09:14 Synthroid 112 mcg Oral tab 1 tab once daily [Active]; Wellbutrin Oral [Active]; eo2 valacyclovir 1 gram oral tab 1 tab once daily [Active]; - PMHx: 09:14 Hypothyroidism; eo2 - PSHx: 09:14 achilles repair; mammoplasty; Tummy tuck; eo2 - Immunization history:: Adult Immunizations up to date, Client reports receiving the 2nd dose of the Covid vaccine. - Social history:: Smoking status: Patient denies any tobacco usage or history of. Patient uses. - Family history:: not pertinent. - Hospitalizations: : The patient was recently seen at [facility]. Screenin:07 Abuse screen: Denies threats or abuse. Denies injuries from another. Nutritional valdes screening: Has had N/V for 3 or more days. Tuberculosis screening: No symptoms or risk factors identified. Fall Risk IV access (20 points). Assessment: 18:08 GI: Bowel sounds hyperactive in right lower quadrant and left lower quadrant. valdes 18:08 GI: Abd is non tender. valdes Vital Signs: 09:10 BP 157 / 103; Pulse 63; Resp 17; Temp 98.3; Pulse Ox 100% ; Weight 61.23 kg; Height 5 eo2 ft. 6 in. (167.64 cm); Pain 8/10; 11:05 BP 103 / 71; Pulse 63; Resp 18; Pulse Ox 99% on R/A; valdes 12:37 BP 160 / 109; Pulse 70; Resp 22; Pulse Ox 100% on R/A; valdes 16:27 BP 162 / 96; Pulse 65; Resp 20; Pulse Ox 100% ; valdes 09:10 Body Mass Index 21.79 (61.23 kg, 167.64 cm) eo2 ED Course: 08:58 Patient arrived in ED. mr 09:14 Triage completed. eo2 09:22 Morgan Marie MD is Attending Physician. rn 09:57 COVID-19/FLU A+B (Document "Date of Onset" if Symptomatic) Sent. valdes 09:58 Basic Metabolic Panel Sent. valdes 09:58 CBC with Diff Sent. valdes 09:58 Hepatic Function Sent. valdes 09:58 Lipase Sent. valdes 10:06 US Abdomen Limited In Process Unspecified. EDMS 10:45 CT Abd/Pelvis - IV Contrast Only In Process Unspecified. EDMS 17:32 Kristina Owens, GALILEO is Primary Nurse. jl7 18:07 No provider procedures requiring assistance completed. Inserted saline lock: 20 gauge valdes in right forearm, using aseptic technique. 18:07 IV discontinued, intact, Pressure dressing applied. valdes 18:07 Patient has correct armband on for positive identification. Bed in low position. valdes 18:08 Arm band placed on. valdes Administered Medications: 09:57 Drug: Phenergan (promethazine) 12.5 mg Route: IVP; Site: left antecubital; valdes 09:58 Follow up: Response: No adverse reaction valdes 09:57 Drug: morphine 4 mg Route: IVP; Site: left antecubital; valdes 09:58 Follow up: Response: No adverse reaction valdes 11:14 Follow up: Response: No adverse reaction valdes 12:23 Follow up: Response: No adverse reaction valdes 09:58 Drug: NS 0.9% 1000 ml Route: IV; Rate: 1000 ml; Site: left antecubital; valdes 10:29 Follow up: IV Status: Completed infusion valdes 11:15 Follow up: IV Status: Completed infusion valdes 11:57 Drug: Zosyn (piperacillin-tazobactam) 3.375 grams Route: IVPB; Infused Over: 60 mins; valdes Site: left antecubital; 12:23 Drug: Phenergan (promethazine) 12.5 mg Route: IVP; Site: left antecubital; valdes 12:24 Follow up: Response: No adverse reaction valdes 12:23 Drug: morphine 4 mg Route: IVP; Site: left antecubital; valdes 12:24 Follow up: Response: No adverse reaction valdes 12:24 Drug: NS 0.9% 1000 ml Route: IV; Rate: 1000 ml; Site: left antecubital; valdes 14:31 Drug: Zofran (Ondansetron) 4 mg Route: IVP; Site: left antecubital; valdes 14:31 Follow up: Response: No adverse reaction valdes 16:26 Drug: Zofran (Ondansetron) 4 mg Route: IVP; Site: right forearm; valdes 16:26 Follow up: Response: No adverse reaction valdes 16:26 Drug: Demerol (meperidine) 25 mg Route: IVP; Site: right forearm; valdes 16:26 Follow up: Response: No adverse reaction Outcome: 17:48 Discharge ordered by . rn 18:07 Discharged to home ambulatory, with family. valdes 18:07 Condition: good 18:07 Discharge instructions given to Prescriptions given X 5 18:09 Patient left the ED. valdes Signatures: Dispatcher [employer] Bing Laurent Roman, MD MD rn Leal, Jahala, RN RN [id number] Au-Stager, GALILEO Acevedo RN valdes Deb Cintron RN RN eo2 Corrections: (The following items were deleted from the chart) :21 09:10 Acuity: NIKOLAI 3 eo2 eo2
[2021-07-18 18:14] VITALS: TEMP 98.3
[2021-07-18 18:17] VITALS: O2SAT 100
[2021-07-18 18:18] VITALS: BP 162/96
== END 2021-07-18 18:09 | disposition home or self-care (01) ==
LOC: ER 08:55
DX: K51.50 Left sided colitis without complications (principal); R11.10 Vomiting, unspecified; E03.9 Hypothyroidism, unspecified; Z88.2 Allergy status to sulfonamides; Z20.822 Contact with and (suspected) exposure to COVID-19
CPT/HCPCS: 0240U; 36415; 74177; 76705; 80048; 80076; 83690; 85025; 99284; J2175; J2405; J2543; J2550; J7030; Q9967

== ENCOUNTER 2023-04-22 17:08 | Emergency (ER) | payer SELFPAY ==
--- OUTSIDE RECORDS SUMMARY | 2023-04-22 17:13 | XMS REPORT | Continuity of Care Document ---
:1960 Author Organization [facility] t Address [address] [place] [address] Care Team Providers Name Role Phone Radha Castrejon MD Primary Care Physician [phone] Radha Castrejon MD Attending Clinician Dina Maldonado MA Attending Clinician Unavailable Samia GREEN, Kanwal Cook Attending Clinician KENNEDY LONGORIA Attending Clinician Unavailable MD JEAN-PIERRE GERMAN Attending Clinician Unavailable MD VINOD CARMICHAEL Attending Clinician Unavailable CO19, JAY Attending Clinician Unavailable Rudy Garduno Jr Attending Clinician LUCIANO CASILLAS M.D. Attending Clinician Unavailable NADEEN RAMOS, PHD Attending Clinician Unavailable Luciano Casillas Attending Clinician KALIE ZULUAGA M.D. Attending Clinician Unavailable JEAN-PIERRE GERMAN Admitting Clinician Unavailable MD JEAN-PIERRE GERMAN Admitting Clinician Unavailable Payers Payer Name Policy Type Policy Number Effective Date Expiration Date S ource Problems Condition Condition Condition Status Onset Resolution Last Treating Co mments Source Name Details Category Date Date Treatment Clinician Date Coronary Coronary Disease Active Metho di artery artery 4-25 st disease disease 00:00: Hospita involving involving 00 l gambell gambell coronary coronary artery of artery of gambell gambell heart heart without without angina angina pectoris pectoris Hyperlipid Hyperlipid Disease Active M ethodi emia emia 4-25 st 00:00: Hospita 00 l Pancolitis Pancolitis Disease Active 2022-0 [address] ethodi 1-25 st 00:00: Hospita 00 l Continuous Continuous Disease Active Overview : Methodi severe severe 1-[address] abdominal abdominal 00:00: g of this H ospita pain pain 00 note l might be different from the original. Added automatic ally from request for surgery [id number] Nausea Nausea Disease Active Overview: Method i vomiting vomiting -[address] and and 00:00: g of this Hospita diarrhea diarrhea 00 note l might be different from the original. 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 Phys ici impairment impairment an s ) with ) with memory memory loss loss Spells of Spells of Problem Active UT decreased decreased Phys ici attentiven attentiven an s ess ess 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 Physici ans Encounter Encounter Problem Active UT for for Physici administra administra an s tion of tion of COVID-19 COVID-19 vaccine vaccine History of History of Problem Resolve UT Moe Moe d Phys ici thyroiditi thyroiditi an s s s History of History of Problem Resolve UT varicella varicella d Phys ici ans History of History of Problem Resolve UT Roger Roger d Physic i syndrome syndrome ans History of History of Problem Resolve UT right foot right foot d Ph ysici drop drop ans History of History of Problem Resolve UT syncope syncope d Physici ans Hypothyroi Hypothyro Problem Resolve 2020-04-19 Memoria dism idism d 00:31:50 l (disorder) (disorder) He rmann Resolved Problem 04/19/2020 [facility], CHRISTEN Yao Menopause Menopause Problem Resolve 2020-04-19 Memoria present present d 00:31:50 l (finding) (finding) Anthony cardenas Resolved Problem 04/19/2020 [facility], CHRISTEN Yao Pneumonia Pneumonia Problem Resolve 2020-04-19 Memoria (disorder) (disorder) d 00:31:50 l Resolved Cameron Problem 04/19/2020 [facility], CHRISTEN Yao Allergies, Adverse Reactions, Alerts Allergy Allergy Status Severity Reaction(s) Onset Inactive Treating Comm ents Source Name Type Date Date Clinician Kamaljit Propensi Active Swelling Method i Inhibito ty to 08-12 st rs adverse 00:00: Hospita reaction 00 l s to drug Sulfa Propensi Active Rash Methodi (Sulfona ty to 08-12 st mide adverse 00:00: Hospita Antibiot reaction 00 l ics) s to drug KAMALJIT DA Active U [facility] Inhibito 10-13 [place] rs 00:00: Orthope 00 dic Hospita l Sulfa DA Active CA [facility] (Sulfona 10-13 [place] mide 00:00: Orthope Antibiot 00 dic ics) Hospita l sulfa sulfa Active Memoria drugs<morales drugs<morales 7-10 l p>1</sup p>1</sup 05:00: Moi n > > 00 sulfamet sulfamet Active Memori a hoxazole hoxazole 7-10 l -trimeth -trimeth 05:00: Moi terrazas oprim<morales oprim<morales 00 p>2</sup p>2</sup > > KAMALJIT DA Active U 2003-0 [facility] Inhibito 11-16 [place] rs 00:00: Orthope 00 dic Hospita l Sulfa DA Active U 2003-0 [facility] (Sulfona 11-16 [place] mide 00:00: Orthope Antibiot 00 dic ics) Hospita l No Known DA Active U 2003-0 [facility] Contrast 11-15 [place] Allergie 00:00: Orthope s 00 dic Hospita l No Known DA Active U 2004-0 [facility] Food 11-15 [place] Allergie 00:00: Orthope s 00 dic Hospita l No Known DA Active U 2004-0 [facility] Other 11-15 [place] Allergie 00:00: Orthope s 00 dic Hospita l SULFA DA Active U 2003-0 [facility] DRUGS 11-15 [place] 00:00: Orthope 00 dic Hospita l KAMALJIT DA Active U 2003- [facility] INHIBITO 4-30 [place] RS 00:00: Orthope 00 dic Hospita l KAMALJIT Allergy Active UT Inhibito to drug Physici rs (finding ans ) sulfa Allergy Active UT to drug Physici (finding ans ) Food Food Active Memoria Sulfites Sulfites l [place] KAMALJIT KAMALJIT Active Memoria Inhibito Inhibito l rs rs [place] Family History Family Member Diagnosis Comments Start Date Stop Date Source Grandmother Family history of [facility] Alzheimer's disease Grandmother Family history of Adult [facility] celiac disease Grandfather Family history of [facility] Aneurysm Grandfather Family history of [facility] atrial fibrillation great grandmother Family history of [facility] atrial fibrillation Mother Family history of [facility] atrial fibrillation Mother Family history of [facility] hypothyroidism Mother Family history of [facility] Degenerative disease of nervous system, unspecified Mother Family history of Alive U [facility] and well Mother Family history of [facility] valvular heart disease Father Family history of [facility] hypertension Father Family history of High [facility] cholesterol Father Family history of [facility] myocardial infarction Father Family history of [facility] cardiomyopathy Father Family history of [facility] Social History Social Habit Start Date Stop Date Quantity Comments Source Sexual orientation [facility] Alcohol intake 2021-08-20 2021-08-20 Ex-drinker [facility] 00:00:00 00:00:00 (finding) Hospital History of Social 2021-08-20 2021-08-[address] function 00:00:00 00:00:00 Hospital Tobacco use and 2021-08-12 2021-08-12 Smokeless [facility] exposure 00:00:00 00:00:00 tobacco non-user Hospital Sex Assigned At [birth year] [facility] 00:00:00 00:00:00 Hospital Smoking Status Start Date Stop Date Source Social History [facility] Medications Ordered Filled Start Stop Current Ordering Indication Dosage Frequency Signature Comments Components Source Medication Medication Date Date Medication? Clinician (SIG) Name Name disulfiram Yes 500mg QD Take 500 Me thodi (Antabuse) 7-[address] 500 mg 00:00: mouth Hospita tablet 00 daily. l diclofenac Yes TAKE 1 Metho di (VOLTAREN) 6-[address] 50 MG EC 00:00: MOUTH Hospita tablet 00 THREE l TIMES A DAY disulfiram 2022- No 1{tbl} Take 1 Me thodi (Antabuse) 12-[address] 500 mg 00:00: 04:59 mouth once Hosp oscar tablet 00 :00 for 1 l dose. ezetimibe 0 2023- No 10mg QD Take 1 Metho di (ZETIA) 10 -10 11-25 tablet (10 st mg tablet 00:00: 04:59 mg total) Ho spita 00 :00 by mouth l daily. rosuvastati 0 2023- No 20mg QD Take 1 Met hodi n (CRESTOR) 11-10-25 tablet (20 s t 20 mg 00:00: 04:59 mg total) Hospit a tablet 00 :00 by mouth l daily. zolpidem Yes Take by Method i (Ambien) 10 2- mouth. st mg tablet 19:45: Hospita 03 l valACYclovi 0 Yes 500mg Take 500 M ethodi r (VALTREX) 1-[address] 500 MG 19:45: mouth. Hospita tablet 32 l estradiol-n 0 Yes 1{patch Place 1 Methodi orethindron 1-31 } patch on st e acet 19:45: the skin. Hospit a (COMBIPATCH 32 l ) 0.05-0.14 mg/24 hr levothyroxi 0 Yes 125ug QD Take 125 M ethodi ne 1-[address] (SYNTHROID, 19:45: mouth Hospi ta LEVOTHROID) 32 every l 125 MCG morning. tablet lysine Yes Take by Methodi 1,000 mg 1-[address] tablet 19:45: daily. Hospita 32 l buPROPion 0 Yes 300mg QD Take 300 Met hodi XL 1-[address] (WELLBUTRIN 19:45: mouth Hospi ta XL) 300 MG 32 daily. l 24 hr tablet ondansetron 0 Yes 4mg Q8H Take 4 mg M ethodi ODT 1-[address] (ZOFRAN-ODT 00:00: every 8 Hos renetta ) 4 MG 00 (eight) l disintegrat hours as ing tablet needed. levothyroxi Yes 112 Memori a ne 112 mcg 9-29 microgram l (0.112 mg) 16:31: = 1 tab, Her sanchez oral tablet 00 PO, Daily, # 1 tab, 0 Refill(s), Pharmacy: [facility], 167.64, cm, 04/16/20 11:03:00 CDT, Height, 64.318, kg, 04/16/20 11:03:00 CDT, Weight dehydroepia 2017- Yes 1, VAG, Mem oria ndrosterone 5-08 Bedtime, # l 6.5 MG 16:26: 30 ea, 6 [place] Vaginal 34 Refill(s), Suppository Pharmacy: [[facility]] [facility] [place] [facility]1 dehydroepia No 1, VAG, Mem oria ndrosterone 5-08 Bedtime, # l 6.5 MG 16:18: 30 ea, 6 [place] Vaginal 00 Refill(s), Suppository Pharmacy: [[facility]] [facility] [place] [facility]2 L-Thyroxine L-Thyroxine Yes 1 QD TAKE 1 UT Sodium 125 Sodium 125 TABLET P hysici MCG TABS MCG TABS DAILY. ans valACYclovi valACYclovi Yes U T r HCl - 1 r HCl - 1 Physi ci GM Oral GM Oral ans Tablet Tablet CombiPatch CombiPatch Yes UT PTTW PTTW Physici ans Ambien 10 Ambien 10 Yes UT MG Oral MG Oral Physici Tablet Tablet ans Wellbutrin Wellbutrin Yes UT XL 300 MG XL 300 MG Physi ci Oral Tablet Oral Tablet a ns Extended Extended Release 24 Release 24 Hour Hour Lysine 1000 Lysine 1000 Yes U T MG TABS MG TABS Physici ans B Complex B Complex Yes UT CAPS CAPS Physici ans Fish Oil Fish Oil Yes UT CAPS CAPS Physici ans Flaxseed Flaxseed Yes UT Oil OIL Oil OIL Physici ans Metamucil Metamucil Yes UT PACK PACK Physici ans Multiple Multiple Yes UT Vitamins/Ir Vitamins/Ir P hysici on Oral on Oral ans Tablet Tablet Vital Signs Vital Name Observation Time Observation Value Comments Source Systolic blood 2022-11-10 119 mm[Hg] [facility] pressure 14:49:00 Hospital Diastolic blood 2022-11-10 82 mm[Hg] [facility] pressure 14:49:00 [facility] Heart rate 2022-11-10 103 /min [facility] 14:49:00 Hospital Body height 2022-11-10 167.6 cm [facility] 14:49:00 Hospital Body weight 2022-11-10 66.679 kg [facility] 14:49:00 Hospital BMI 2022-11-10 23.73 kg/m2 [facility] 14:49:00 Hospital Systolic (mm Hg) 2020-04-16 [facility] He rmann 16:03:00 Diastolic (mm Hg) 2020-04-16 [facility] ermann 16:03:00 Height 2020-04-16 167.64 cm [facility] Moi n 16:03:00 Weight 2020-04-16 [facility] Moi n 16:03:00 BMI Calculated 2020-04-16 [facility] 16:03:00 BP Systolic 2019-06-01 135 mm[Hg] Location: LLE; [facility] 14:48:00 Position: Sitting BP Diastolic 2019-06-01 88 mm[Hg] Location: LLE; [facility] 14:48:00 Position: Sitting Height 2019-06-01 66 [in_us] [facility] 14:48:00 Weight 2019-06-01 140 [lb_av] [facility] 14:48:00 Body Mass Index 2019-06-01 22.6 kg/m2 [facility] Calculated 14:48:00 Temperature 2019-06-01 97.8 [degF] [facility] 14:48:00 Heart Rate 2019-06-01 66 /min [facility] 14:48:00 BP Systolic 2019-02-09 156 mm[Hg] [facility] 09:10:00 BP Diastolic 2019-02-09 95 mm[Hg] [facility] 09:10:00 Height 2019-02-09 66 [in_us] [facility] 09:10:00 Weight 2019-02-09 139 [lb_av] [facility] 09:10:00 Body Mass Index 2019-02-09 22.44 kg/m2 [facility] s Calculated 09:10:00 Heart Rate 2019-02-09 69 /min [facility] 09:10:00 Respiration Rate 2019-02-09 16 /min [place] [facility] 09:10:00 O2 SAT 2019-02-09 98 % [facility] 09:10:00 Height 2019-01-31 167.64 cm [facility] Moi n 19:45:00 Temperature Oral 2019-01-31 98.9 [facility] rmann (F) 19:45:00 Heart Rate 2019-01-31 [facility]i n 19:45:00 BMI Calculated 2019-01-31 [facility] 19:45:00 Weight 2019-01-31 [facility] Moi n 19:45:00 Systolic (mm Hg) 2019-01-31 [facility] Roel rmann 19:45:00 Diastolic (mm Hg) 2019-01-31 [facility] ermann 19:45:00 BMI Calculated 2017-11-23 [facility] 16:02:00 Weight 2017-11-23 [facility] Moi n 16:02:00 Heart Rate 2017-11-23 [facility] Moi n 16:02:00 Systolic (mm Hg) 2017-11-23 [facility] Roel rmann 16:02:00 Diastolic (mm Hg) 2017-11-23 [facility] Spencer ermann 16:02:00 Height 2017-11-23 167.64 cm Danica Cruzan n 16:02:00 Procedures Procedure Date / Time Performed Performing Clinician Sourc e [Q] AUTOIMMUNE EPILEPSY 2019-06-01 00:00:00 [facility] EVALUATION [H] Paraneoplastic 2019-03-21 00:00:00 [facility] Autoantibody Evaluation [Q] Rikki Encephalitis 2019-03-21 00:00:00 [facility] Paraneoplastic Evaluation with Recombx MRI Brain wo contrast 2019-02-13 00:00:00 UT Curtis delacruz [id number] EEG Awake and Asleep 2019-02-09 00:00:00 [facility] [UTP] EMG 2019-02-09 00:00:00 [facility] s [QLH] CBC (INCLUDES 2019-02-09 00:00:00 [facility] DIFF/PLT) [QLH] CMP W/EGFR 2019-02-09 00:00:00 [facility] ns [QLH] VITAMIN B12 2019-02-09 00:00:00 [facility] ans [QLH] RPR 2019-02-09 00:00:00 [facility] s [QLH] VITAMIN B1, WHOLE 2019-02-09 00:00:00 [facility] BLOOD [H] Celiac Pnl w/Rflx 2019-02-09 00:00:00 [facility] Endomy Ab Ttr [Q] Rikki Encephalitis 2019-02-09 00:00:00 [facility] Paraneoplastic Evaluation with Recombx [H] Paraneoplastic 2019-02-09 00:00:00 [facility] Autoantibody Evaluation MRI Brain wo contrast 2019-02-09 00:00:00 [facility] [id number] [UTP] Neuro Adult 23 Hr 2019-02-09 00:00:00 [facility] EEG History of Achilles tendon [facility] surgery History of Rhinoplasty [facility] History of Abdominoplasty [facility] History of Rectal [facility] polypectomy History of Ablation [facility] History of Lumbar [facility] discectomy Abdominoplasty [facility] Bilateral breast implants Memori al [place] Breast reduction [facility] n Plan of Care Planned Activity Planned Date Details Comments Source Future Scheduled 2023-04-08 Screening for [facility] Test 16:11:08 malignant neoplasm of colon (procedure) [code = 099487746] Future Scheduled 2023-04-08 Screening for [facility] Test 16:11:08 malignant neoplasm of colon (procedure) [code = 811165560] Future Scheduled 2023-04-08 Screening for [facility] Test 16:11:08 malignant neoplasm of colon (procedure) [code = 053558800] Future Scheduled 2023-04-08 Pneumococcal Vaccine: [facility] Test 16:11:08 Pediatrics (0 to 5 Years) and At-Risk Patients (6 to 64 Years) (1 - PCV) [code = Pneumococcal Vaccine: Pediatrics (0 to 5 Years) and At-Risk Patients (6 to 64 Years) (1 - PCV)] Future Scheduled 2023-04-08 Hepatitis C screening [facility] Test 16:11:08 (procedure) [code = 912750906] Future Scheduled 2023-04-08 Screening for [facility] Test 16:11:08 malignant neoplasm of cervix (procedure) [code = 687787007] Future Scheduled 2023-04-08 BREAST CANCER [facility] Test 16:11:08 SCREENING [code = BREAST CANCER SCREENING] Future Scheduled 2023-04-08 Screening for [facility] Test 16:11:08 malignant neoplasm of colon (procedure) [code = 109192609] Future Scheduled 2023-04-08 Screening for [facility] Test 16:11:08 malignant neoplasm of colon (procedure) [code = 678905276] Future Scheduled 2023-04-08 SHINGLES VACCINES ([address] [facility] Test 16:11:08 of 2) [code = SHINGLES VACCINES (1 of 2)] Future Scheduled 2023-04-08 COVID-19 VACCINE (4 - Me [facility] Test 16:11:08 Pfizer series) [code = COVID-19 VACCINE (4 - Pfizer series)] Future Scheduled 2023-04-08 INFLUENZA VACCINE [facility] Test 16:11:08 (#1) [code = INFLUENZA VACCINE (#1)] Diagnostic Test 2019-02-27 [UTP] EMG [code = [facility] Pending 00:00:00 [UTP] EMG] Diagnostic Test 2019-02-09 [UTP] EMG [code = [facility] Pending 00:00:00 [UTP] EMG] Diagnostic Test 2019-02-09 [UTP] EMG [code = [facility] Pending 00:00:00 [UTP] EMG] Diagnostic Test 2019-02-09 [UTP] Neuro Adult 23 [facility] Pending 00:00:00 Hr EEG [code = [UTP] Neuro Adult 23 Hr EEG] Diagnostic Test 2019-02-09 [UTP] EMG [code = [facility] Pending 00:00:00 [UTP] EMG] Encounters Start End Encounter Admission Attending Care Care Encounter Source Date/Time Date/Time Type Type Clinicians Facility Department ID 2023-01-21 2023-01-21 Orders Cash, 1.2.840.1 [id number] Methodi 00:00:00 00:00:00 Only Radha [place] [address].1.[address] 3.430.2.7 Hospit a .3.320656 l .8 2023-01-21 2023-01-21 Telephone Erica, 1.2.840.1 [id number] Methodi 00:00:00 00:00:[address] 3.430.2.7 Hospit a .3.186285 l .8 2022-12-29 2022-12-29 Refill Cash, 1.2.840.1 [id number] Methodi 00:00:00 00:00:[address] 3.430.2.7 Hospit a .3.281026 l .8 2022-12-17 2022-12-17 Telephone Erica, 1.2.840.1 [id number] Methodi 00:00:00 00:00:[address] 3.430.2.7 Hospit a .3.622738 l .8 2022-11-10 2022-11-10 Office Bryan, 1.2.840.1 [id number] Methodi 09:20:00 14:10:11 Visit Kanwal QuinonesJose [address]106.1.[address] 3.430.2.7 Hospit a .3.525464 l .8 2022-11-10 2022-11-10 Travel 1.2.840.1 [id number] [id number] Methodi 00:00:00 00:00:[address] 3.430.2.7 0.2.7.3.698 Ho spita .3.526650 084.8 l .8 2022-11-10 2022-11-10 Outpatient SAMIA, [facility] [id number] [place] 00:00:00 00:00:00 KANWAL [address] 2021-08-12 2021-08-18 Inpatient AUGUSTINE, [facility] 064 [id number] [place] 00:00:00 00:00:00 KENNEDY [address] 2020-10-04 2020-10-04 Appointmen CO19, UTP UTP [id number] UT 11:30:00 11:30:00 t; CO19, NURSE-COOLE P hysici NURSE-COOL Y ans EY 2020-09-14 2020-09-14 Appointmen CO19, UTP UTP [id number] UT 15:30:00 15:30:00 t; CO19, NURSE-COOLE P hysici NURSE-COOL Y ans EY 2020-04-16 2020-04-17 Outpatient nullFlavo [facility] survey chief 3 [id number] Memoria 16:00:00 04:59:59 r [facility] 04 l Cameron 2020-04-16 2020-04-16 Outpatient Del [facility] [id number] 11:00:00 23:59:59 ZunigaLindsay Rudy 2020-04-16 2020-04-16 Outpatient MHIE MHIE [id number] Memoria 11:00:00 11:00:00 04 l [place] 2019-06-01 2019-06-01 ERICK Hairston Neurology - [id number] UT 14:30:00 14:30:00 t; LUCIANO CASILLAS [place] Ph elvia LOGAN M.D. Medical ans MDamian [place] 2019-03-27 2019-03-27 ERICK Blair [facility] [id number] [place] 08:30:00 08:30:00 t; Giovanni SENIOR, PHD ans NADEEN, PHD 2019-02-27 2019-02-28 Outpatient nullFlavo [facility] [id number] Memoria 19:21:00 04:59:00 r [place] 04 l [facility] 2019-02-27 2019-02-27 Outpatient Vinny [facility] [id number] 14:21:00 23:59:00 Luciano Lin 2019-02-27 2019-02-27 Outpatient [facility] [id number] [facility] 14:21:00 14:21:00 2019-02-27 2019-02-27 ERICK Doshi Neurology - [id number] [place] 13:00:00 13:00:00 t; KALIE ZULUAGA M.D. [place] Larissa JADE M.D. Medical ans [place] 2019-02-22 2019-02-[address] [facility] [id number] Memoria 15:00:00 04:59:00 Services r Outpatient 00 l Arnold Zavala 2019-02-22 2019-02-22 Outpatient Vinny 35 [id number] 10:00:00 23:59:00 Luciano Lin 2019-02-09 2019-02-09 ERICK Hairston Neurology - [id number] [place] 09:00:00 09:00:00 t; LUCIANO CASILLAS [place] [facility] RAYMOND, M.D. Medical ans MDamian [place] 2019-01-31 2019-02-01 Outpatient nullFlavo [facility] [employer] WORKER 3 [id number] Memoria 16:15:00 04:59:59 r [facility] 03 l [place] 2019-01-31 2019-01-31 Outpatient Del [facility] [id number] 11:15:00 23:59:59 Zuniga, 03 [place] 2019-01-31 2019-01-31 Outpatient WAQAS ALAN [id number] Memoria 11:15:00 11:15:00 03 ria Barnes 2017-11-23 2017-11-24 Outpatient nullFlavo [facility] [employer] 3 [id number] Memoria 16:15:00 04:59:59 r [facility] 02 l [place] 2017-11-23 2017-11-23 Outpatient Del [facility] [id number] 11:15:00 23:59:59 Zuniga, 02 [place] 2017-11-23 2017-11-23 Outpatient WAQAS ALAN [id number] Memoria 11:15:00 11:15:00 02 ria Barnes 2016-10-20 2016-10-20 Outpatient WAQAS ALAN [id number] Memoria 11:15:00 11:15:00 01 ria Barnes Results Test Description Test Time Test Comments Results Result Comments Source SARS-CoV-2 (COVID-19) RNA [Presence] in Respiratory sp ecimen by 2021-08-15 23:59:20 DIDI with probe detection Test Item Value Reference Range Interpretation Comme nts SARS-CoV-2 (COVID-19) RNA [Presence] in Respiratory Not detected No t-Detected specimen by DIDI with probe detection (test code = 32075-1) Whether patient is employed in a healthcare setting (test code = 17624-0) Whether the patient has symptoms related to condition of interest (test code = 42554-6) Patient was hospitalized because of this condition (test code = 92667-2) Whether the patient was admitted to intensive care unit (ICU) for condition of interest (test code = 25098-0) Whether patient resides in a congregate care setting (test code = 99503-8) EDGAR HOLDERRS-CoV-2 (COVID-19) RNA [Presence] in Respiratory specimen by DIDI with probe [id number] 22:04:54 Test Item Value Reference Range Interpretation Comments SARS-CoV-2 (COVID-19) RNA Not detected Not-Detected [Presence] in Respiratory specimen by DIDI with probe detection (test code = 81622-5) Whether patient is employed in a healthcare setting (test code = 54600-4) Whether the patient has symptoms related to condition of interest (test code = 90697-2) Patient was hospitalized because of this condition (test code = 51531-0) Whether the patient was admitted to intensive care unit (ICU) for condition of interest (test code = 69608-9) Whether patient resides in a congregate care setting (test code = 29787-3) status (test code = 20101-8) EDGAR LASSITER[L] No Test [id number] 10:17:00 Test Item Value Reference Range Interpretation Comments Dear Doctor See Comment .The requisitio n we (test code = received for th e above Dear Doctor) patient has no testindicated o n the request form fo r one or more of the specimenssubmit german. The [place] C ode of Federal Regulat ions requires awritt en and signed request be forwarded to the testing laboratoryfollo wing the verbal order of a laboratory test . .Date: .I Diagnosis Code(s): .Physician or A uthorized Designee Signat ure: . __ .Your signature confi tremaine your order of the te st(s) listed .Required test name(s): __ .Required te st number(s): __ .Please prov hermes requested infor laura and fax to [phone] expedite araceli Garcia [facility][L] Paraneoplastic Profile [id number] 10:17:00 Test Item Value Reference Range Interpretation [...] and p erformance parametershave been validated by [employer] This test hasnot been nikki roved by the U.S. Food and Drug A dministration(FDA); however, FDA approval is not required for cl [...] racteristics of this test wered etermined by [employer] [facility][QL] PARANEOPLASTIC AUTOANTIBODY WHIT. [id number] 10:17:00 Test Item Value Reference Interpretation Comments [...] developed and its performance characteristics determined by [facility] in a manner consistent with CLIArequirement s. This test has not been cl eared or approved bythe U.S. Food and Drug Administra tion. Anti-Neuronal Negative <1:240 -----ADDITIONAL Nucl. Ab, Type 2 INFORMATION (test code = -This test was developed and Anti-Neuronal its performanc e Nucl. Ab, Type characteristi csdetermined by 2) [facility] in a manner consistent with CLIArequirement s. This test has not been cl eared or approved bythe U.S. Food and Drug Administra tion. Anti-Neuronal Negative <1:240 -----ADDITIONAL Nucl. Ab, Type 3 INFORMATION (test code = -This test was developed and Anti-Neuronal its performanc e Nucl. Ab, Type characteristi csdetermined by 3) [facility] in a manner consistent with CLIArequirement s. This test has not been cl eared or approved bythe U.S. Food and Drug Administra tion. Anti-Glial Negative <1:240 ----ADDITIONAL Nuclear Ab Type INFORMATION- 1 (test code = -This test wa s developed and Anti-Glial its performance Nuclear Ab Type characterist icsdetermined by 1) [facility] in a manner consistent with CLIArequirement s. This test has not been cl eared or approved bythe U.S. Food and Drug Administra tion. Purkinje Cell Negative <1:240 -----ADDITIONAL Cytop.Ab,Type 1 INFORMATION- (test code = -This test was developed and Purkinje Cell its performanc e Cytop.Ab,Type 1) characteris ticsdetermined by [facility] in a manner consistent with CLIArequirement s. This test has not been cl eared or approved bythe U.S. Food and Drug Administra tion. Purkinje Cell Negative <1:240 -----ADDITIONAL Cytop.Ab, Type 2 INFORMATION (test code = -This test was developed and Purkinje Cell its performanc e Cytop.Ab, Type characteristi csdetermined by 2) [facility] in a manner consistent with CLIArequirement s. This test has not been cl eared or approved bythe U.S. Food and Drug Administra tion. Purkinje Cell Negative <1:240 -----ADDITIONAL Cytop.Ab Type Tr INFORMATION (test code = -This test was developed and Purkinje Cell its performanc e Cytop.Ab Type characteristic sdetermined by Tr) [facility] in a manner consistent with CLIArequirement s. This test has not been cl eared or approved bythe U.S. Food and Drug Administra tion. Amphiphysin Ab, Negative <1:240 -------ADDITIONAL S (test code = INFORMATION-- Amphiphysin Ab, -This test w as developed and S) its performance characteristics determined by [facility] in a manner consistent with CLIArequirement s. This test has not been cl eared or approved bythe U.S. Food and Drug Administra tion. CRMP-5 IgG, S Negative <1:240 -----ADDITIONAL (test code = INFORMATION---- CRMP-5 IgG, S) -This test wa s developed and its performance characteristics determined by [facility] in a manner consistent with CLIArequirement s. This test has not been cl eared or approved bythe U.S. Food and Drug Administra tion. Striational Negative <1:120 ----ADDITIONAL (Striat.Muscle), INFORMATION Ab (test code = -This test w as developed and Striational its performance (Striat.Muscle), characteris ticsdetermined by Ab) [facility] in a manner consistent with CLIArequirement s. This test has not been cl eared or approved bythe U.S. Food and Drug Administra tion. Calcium Channel, 0.00 nmol/L <=0.02 --------ADDITIONAL Ab P/Q-Type INFORMATION---- (test code = -This test was developed and Calcium Channel, its perform ance Ab P/Q-Type) characteristics determined by [facility] in a manner consistent with CLIArequirement s. This test has not been cl eared or approved bythe U.S. Food and Drug Administra tion. Calcium Channel, 0.00 nmol/L <=0.03 --------ADDITIONAL Ab N-Type (test INFORMATION- code = Calcium -This test wa s developed and Channel, Ab its performance N-Type) characteristics determined by [facility] in a manner consistent with CLIArequirement s. This test has not been cl eared or approved bythe U.S. Food and Drug Administra tion. ACh TNP Test not perfor med Recp.(Muscle)Bin ding Ab (test code = ACh Recp.(Muscle)Bin ding Ab) AChR Ganglionic 0.00 nmol/L <=0.02 -------ADDITIONAL Neuronal Ab, S INFORMATION-- (test code = -This test was developed and AChR Ganglionic its performa nce Neuronal Ab, S) characterist icsdetermined by [facility] in a manner consistent with CLIArequirement s. This test has not been cl eared or approved bythe U.S. Food and Drug Administra tion. Neuronal (V-G) 0.00 nmol/L <=0.02 ------ADDITIONAL K+Channel Ab, S INFORMATION- (test code = -This test was developed and Neuronal (V-G) its performan ce K+Channel Ab, S) characteris ticsdetermined by [facility] in a manner consistent with CLIArequirement s. This test has not been cl eared or approved bythe U.S. Food and Drug Administra tion. [facility] Brain wo contrast [id number] 09:54:00Exam: MRI brain without contrast.INDICATION: Hereditary ataxia.COMPARISON: Outside [...] in the interim.Minimal microangiopathic changes.--Read by: Ml Atkins MDDictated Date/time: 02/22/19 13:43Electronically Signed by: Ml Atkins MD 02/22/1913:51FINAL REPORT[facility][QL] CBC (INCLUDES DIFF/PLT)2019-02-09 12:20:00 Test Item Value [...] (test 0 % Not Estab. code = 68105-6) Immature Grans (Abs) (test 0.0 {x10E3/uL} 0.0-0.1 code = 19453-5) NRBC (test code = 14155-3) See Comment Hematology Comments: (test See Comment code = 11313-0) [facility][QL] COMPREHENSIVE METABOLIC PANEL W/O [id number] 12:20:00 Test Item Value Reference Range Interpretation Comments Glucose; Above High Threshold 105 mg/dL 65-99 (test code = 2345-7) BUN; Below Low Threshold (test 5 mg/dL 6-24 code = 3094-0) Creatinine (test code = 0.69 mg/dL 0.57-1.00 2160-0) eGFR If NonAfricn Am (test 98 mL/min/1.7 >59 code = 95946-8) eGFR If Africn Am (test code = 113 mL/min/1.7 >59 77604-2) BUN/Creatinine Ratio; Below 7 9-23 Low Threshold (test code = 3097-3) Sodium, Serum (test code = 137 mmol/L 558-144 3972-2) Potassium (test code = 2823-3) 4.7 mmol/L 3.5-5.2 Chloride (test code = 2075-0) 98 mmol/L 96-106 Carbon Dioxide, Total (test 23 mmol/L 20-29 code = 8-9) Calcium, Serum (test code = 8.9 mg/dL 8.7-10.2 42089-4) Protein, Total (test code = 6.9 g/dL 6.0-8.5 2885-2) Albumin (test code = 1751-7) 4.7 g/dL 3.5-5.5 Globalulin, Total (test code = 2.2 g/dL 1.5-4.5 40872-5) A/G Ratio (test code = 1759-0) 2.1 1.2-2.2 Bilirubin, Total (test code = 0.4 mg/dL 0.0-1.2 1975-2) Alkaline Phosphatase (test 60 {IU/L} 39-117 code = 6768-6) AST (SGOT) (test code = 31 {IU/L} 0-40 1920-8) ALT (SGPT) (test code = 32 {IU/L} 0-32 1742-6) [facility]] [id number] 12:20:00 Test Item Value Reference Range Interpretation Comments RPR (test code = 15779-9) Non Reactive Non Reactive [facility]] VITAMIN [id number] 12:20:00 Test Item Value Reference Range Interpretation Comments Vitamin B12 (test code = 2132-9) 824 pg/mL 232-1245 [facility][L] Celiac Disease [id number] 12:20:00 Test Item Value Reference Range Interpretation Comments Endomysial Antibody Negative Negative IgA (test code = 29957-5) t-Transglutaminase <2 0-3 Negative 0 - 3 Weak (tTG) IgA (test code Positiv e 4 - 10 = 30283-4) Positive >10 . Tissue Transglutaminas e (tTG) has been identi fied as the endomysial antigen. Studies have de monstr- ated that endom ysial IgA antibodies have over 99% specif icity for gluten sens itive enteropathy. Immunoglobulin A, Qn, 253 mg/dL 87-352 Serum (test code = 2458-8) [facility]] VITAMIN B1, WHOLE [id number] 12:20:00 Test Item Value Reference Interpretation Comments Range Vit. B1, Whole 238.1 66.5-200.0 This test was developed and Blood; Above nmol/L its performance High Threshold characteristi csdetermined by (test code = [facility]. It has not been 54386-5) cleared or appr ovedby the Food and Drug Admini stration. [facility][L] Paraneoplastic Profile 12:20:00 Test Item Value [...] and p erformance parametershave been validated by [employer] This test hasnot been nikki roved [...] racteristics of this test wered etermined by [employer] . [facility]
--- NOTE | 2023-04-22 17:19 | ER ---
Nurse's Notes [facility] Name: Yue Trinidad Age: 62 yrs Sex: Female : 1960 Arrival Date: 04/22/2023 Time: 17:08 Bed 3 Private MD: Diagnosis: Transient alteration of awareness-resolved Presentation: 04/22 17:14 Chief complaint: EMS states: Pt found [place] over [place] [address] [place]/ car in park, ph asleep. Slight slurred speech noted, denies ETOH use, states that she left [place] this morning at approx [address] [place] to work out and that's the last thing she remembers until waking up on side of the road, all VSS, BGL 94. Coronavirus screen: Vaccine status: Patient reports receiving the 1st dose of the Covid vaccine. Ebola Screen: No symptoms or risks identified at this time. Initial Sepsis Screen: Does the patient meet any 2 criteria? No. Patient's initial sepsis screen is negative. Does the patient have a suspected source of infection? No. Patient's initial sepsis screen is negative. Risk Assessment: Do you want to hurt yourself or someone else? Patient reports no desire to harm self or others. Onset of symptoms was April 22, 2023. 17:14 Method Of Arrival: EMS: [facility] 17:14 Acuity: NIKOLAI 3 ph Triage Assessment: 17:18 General: Appears in no apparent distress. Behavior is cooperative, crying. Pain: Denies ph pain. Neuro: Level of Consciousness is awake, alert, obeys commands, Oriented to person, place, time, situation, Pipe [employer]immer are equal bilaterally Moves all extremities. Speech is slurred, Facial symmetry appears normal, Pupils are PERRLA, Intact. Neuro: Denies weakness dizziness, headache. Cardiovascular: Capillary refill < 3 seconds in bilateral fingers Patient's skin is warm and dry. Respiratory: Airway is patent Respiratory effort is even, unlabored. Derm: Skin is pink, warm \T\ dry. Musculoskeletal: Circulation, motion, and sensation intact. Range of motion: intact in all extremities. Historical: - Allergies: 17:18 YEIMI INHIBITORS; ph 17:18 Sulfa (Sulfonamide Antibiotics); ph - PMHx: 17:18 Hypothyroidism; ph - PSHx: 17:18 achilles repair; mammoplasty; Tummy tuck; ph - Immunization history:: Adult Immunizations unknown. - Social history:: Smoking status: unknown. Screenin:20 Abuse screen: Denies threats or abuse. Denies injuries from another. Nutritional ph screening: No deficits noted. Tuberculosis screening: No symptoms or risk factors identified. Assessment: 17:10 Reassessment: Pt declining treatment, ERP notified. ph 17:19 Reassessment: ERP at bedside to speak w/ pt, pt again declining treatment. ph Vital Signs: 17:14 BP 150 / 108; Pulse 89; Resp 18; Temp 97.4; Pulse Ox 99% on R/A; Weight 63.5 kg; Height ph 5 ft. 6 in. ; 17:14 Body Mass Index 22.60 (63.50 kg, 167.64 cm) ph ED Course: 17:11 Patient arrived in ED. em1 17:13 [facility] sb[facility] 17:13 Amandeep Ochoa MD is Attending Physician. sb4 17:14 Neva Sarmiento, RN is Primary Nurse. ph 17:18 Triage completed. ph 17:19 Arm band placed on Patient placed in an exam room, on a stretcher. ph 17:20 Patient has correct armband on for positive identification. ph 17:20 No provider procedures requiring assistance completed. Patient did not have IV access ph during this emergency room visit. Administered Medications: No medications were administered Medication: 17:20 VIS not applicable for this client. ph Outcome: 17:18 Discharge ordered by . sb4 17:25 Discharged to home ambulatory, ph 17:25 Condition: stable 17:25 Discharge instructions given to patient, 17:25 Patient left the ED. ph Signatures: Paolo Yung em1 Neva Sarmiento, RN RN ph Janae Aragon PA-C PA-C sb4
--- NOTE | 2023-04-22 17:19 | EDPHYS ---
Physician Documentation [facility] Name: Yue Trinidad Age: 62 yrs Sex: Female : 1960 Arrival Date: 04/22/2023 Time: 17:08 Bed 3 Private MD: ED Physician Amandeep Ochoa HPI: 04/22 17:25 This 62 yrs old Female presents to ER via EMS with complaints of AMS. sb4 17:25 Patient was brought in by EMS per PD's request. Apparently, patient was found sleeping sb4 in her car on the side of the road and could not recall how she got there. The last thing she remembered is that she was driving from [place] to [place] for a workout. PD thought she might be intoxicated and altered. Patient denies any EtOH abuse. She states that she has had 2 seizures in the past 60 years and is not on any medication for it. She does not think she had a seizure but she is unsure what happened but she is also declining any work-up and requesting to leave. Historical: - Allergies: 17:18 YEIMI INHIBITORS; ph 17:18 Sulfa (Sulfonamide Antibiotics); ph - PMHx: 17:18 Hypothyroidism; ph - PSHx: 17:18 achilles repair; mammoplasty; Tummy tuck; ph - Immunization history:: Adult Immunizations unknown. - Social history:: Smoking status: unknown. ROS: 17:25 Constitutional: Negative for fever, chills, and weight loss, sb4 17:25 Neuro: Positive for altered mental status, 17:25 All other systems are negative, Exam: 17:25 Head/Face: Normocephalic, atraumatic. Eyes: Extra-ocular motions intact. Periorbital sb4 areas with no swelling, redness, or edema. ENT: Mucous membranes moist. Cardiovascular: Regular rate and rhythm with a normal S1 and S2. Respiratory: Lungs have equal breath sounds bilaterally, clear to auscultation and percussion. No rales, rhonchi or wheezes noted. No increased work of breathing, no retractions or nasal flaring. Abdomen/GI: Soft, non-tender, no distension. Skin: Warm, dry with normal turgor. Normal color with no rashes, no lesions, and no evidence of cellulitis. MS/ Extremity: Pulses equal, no cyanosis. Neurovascular intact. Full, normal range of motion. Neuro: Awake and alert, GCS 15, oriented to person, place, time, and situation. Motor strength 5/5 in all extremities. Sensory grossly intact. 17:25 Constitutional: The patient appears in no acute distress, alert, awake, smells of alcohol, ETOH, Vital Signs: 17:14 BP 150 / 108; Pulse 89; Resp 18; Temp 97.4; Pulse Ox 99% on R/A; Weight 63.5 kg; Height ph 5 ft. 6 in. ; 17:14 Body Mass Index 22.60 (63.50 kg, 167.64 cm) ph MDM: 17:13 Patient medically screened. sb4 17:25 Differential Diagnosis: electrolyte abnormality, alcohol intoxication, hypoglycemia, sb4 overdose, seizure, TIA. Data reviewed: vital signs, nurses notes, EMS record, and as a result, I will discharge patient. Test considered but Not performed: Other Details Wanted to do head CT and labs however patient declined . Counseling: I had a detailed discussion with the patient and/or guardian regarding the historical points, exam findings, and any diagnostic results supporting the discharge/admit diagnosis, the need for outpatient follow up, for definitive care, to return to the emergency department if symptoms worsen or persist or if there are any questions or concerns that arise at home. Refusal of service: The patient/guardian displays adequate decision making capability and despite a detailed discussion of alternatives, benefits, risks, and consequences refuses: CT Scan, all lab tests. ED course: Patient smells of EtOH. She declines any consumption. I suspect her symptoms are secondary to alcohol intoxication. She is declining any work-up at this time. She is oriented x4 and has capable decision-making capacity. Her will take her home. BGL within normal limits, she is not postictal. return precautions given. Administered Medications: No medications were administered Disposition Summary: 04/22/23 17:18 Discharge Ordered Notes: Location: Home sb4 Problem: new sb4 Symptoms: are resolved sb4 Condition: Stable sb4 Diagnosis - Transient alteration of awareness - resolved(04/22/23 17:19) sb4 Followup: sb4 - With: Emergency Department - When: As needed - Reason: Trouble breathing, Worsening of condition Forms: - Medication Reconciliation Form sb4 - Thank You Letter sb4 - Antibiotic Education sb4 - Prescription Opioid Use sb4 - Patient Portal Instructions sb4 - Leadership Thank You Letter sb4 Signatures: Neva Sarmiento, RN RN ph Mahesh, POPPY Cardoso PA-C sb4 Corrections: (The following items were deleted from the chart) 17:19 17:18 Transient alteration of awareness sb4 sb4
[2023-04-22 19:37] VITALS: BP 150/108; TEMP 97.4; O2SAT 99
== END 2023-04-22 17:25 | disposition home or self-care (01) ==
LOC: ER 17:08
DX: R41.82 Altered mental status, unspecified (principal)
CPT/HCPCS: 99283